=== PATIENT | female | born 1930 | race Caucasian/White ===

== ENCOUNTER 2016-06-29 20:16 | Inpatient (IN) | payer OTHER ==
[~2016-06-29] VITALS: Ht 160 cm; Wt 57.1 kg
[~2016-06-29 20:16] MED LIST: ASPEC81 PO; CIPR-255 PO; METO50TA16 PO
[2016-06-29] MEDS ORDERED: ACETAMINOPHEN 500 MG TAB PO STA (21:08)
[2016-06-29] MEDS ORDERED: SODIUM CHLORIDE 0.9% 1000ML 1,000 ML IV STA (21:08)
--- NOTE | 2016-06-29 21:41 | DIAGNOSTIC IMAGING REPORT ---
CHEST ONE VIEW PORTABLE CLINICAL HISTORY: fever COMPARISON STUDY: 12/09/2015 FINDINGS: The heart is at the upper limits of normal in size. There is no failure. There is no focal pulmonary consolidation. There are no pleural effusions. Underlying emphysema is suspected.[ IMPRESSION: Suspected pulmonary emphysema. No acute findings. Electronically signed by: Burak Dutton M.D. 06/29/2016 9:40 PM Dictated Date/Time: 06/29/2016 9:39 PM
[2016-06-29 21:49] LABS: URINE APPEARANCE CLEAR (CLEAR); URINE BILIRUBIN NEG (NEG); URINE COLOR YELLOW; URINE EPITHELIAL CELL AUTO >30 /lpf (0-5); URINE NITRITE NEG (NEG); URINE PH 5.5 (4.5-7.5); URINE SPECIFIC GRAVITY 1.016 (1.000-1.030); UROBILINOGEN NEG (NEG); ZZUR CULT IF INDIC CLEAN CATCH NO
[2016-06-29 21:51] LABS: MANUAL MICROSCOPIC REQUIRED? NO; REVIEW REQ? NO
[2016-06-29 22:09] LABS: PROTHROMBIN TIME (PATIENT) 10.8 SECONDS (9.0-12.0)
[2016-06-29 22:18] LABS: HEMATOCRIT 21.5 % (37-47); MEAN CELL VOLUME 64.2 fL (80-100); MEAN CORPUSCULAR HEMOGLOBIN 17.9 pg (25-34); MEAN CORPUSCULAR HGB CONC 27.9 g/dl (32-36); MEAN PLATELET VOLUME 8.7 fL (7.4-10.4); PLATELET COUNT 447 K/uL (130-400); RED BLOOD COUNT 3.35 M/uL (4.2-5.4); WHITE BLOOD COUNT 19.78 K/uL (4.8-10.8)
[2016-06-29 22:19] LABS: ALT/SGPT 11 U/L (12-78); BLOOD UREA NITROGEN 12 mg/dl (7-18); BUN/CREATININE RATIO 13.3 (10-20); CARBON DIOXIDE 27 mmol/L (21-32); CHLORIDE 103 mmol/L (98-107); CREATININE 0.91 mg/dl (0.60-1.20); GLUCOSE 112 mg/dl (70-99); MAGNESIUM 2.3 mg/dl (1.8-2.4); POTASSIUM 3.9 mmol/L (3.5-5.1); SODIUM 138 mmol/L (136-145)
[2016-06-29 22:24] LABS: ALKALINE PHOSPHATASE 162 U/L (45-117); AST/SGOT 12 U/L (15-37)
[2016-06-29] MEDS ORDERED: ASPITAB67 PO (22:28)
[2016-06-29 22:30] LABS: CALCIUM 8.8 mg/dl (8.5-10.1)
[2016-06-29 22:41] LABS: BASO % 0.1 %; BASO ABS # 0.02 K/uL (0-0.2); COMPLETE YES; HYPOCHROMIA PRESENT; IG% 0.5 %; LYMPH % 10.4 %; LYMPH ABS # 2.05 K/uL (1.2-3.4); MICROCYTOSIS PRESENT; MONO % 5.9 %; NEUT % 83.1 %
[2016-06-29] MEDS ORDERED: PIPERACILLIN/TAZOBACTAM 4.5 GM/100ML D5W IV STA (22:52)
[2016-06-29] MEDS ORDERED: PANTOprazole INJ 80 MG in DEXTROSE 5% 100ML IV STA (23:55)
[2016-06-29] MEDS ORDERED: PANTOprazole INJ 40 MG in DEXTROSE 5% 100ML IV STA (23:56)
[2016-06-30] VITALS (15 sets, daily range): BP systolic 122–166; BP diastolic 61–82; PULSE 75–98; TEMP 36.5–37.1; O2SAT 93–98; Ht 160 cm; Wt 57.1 kg
--- NOTE | 2016-06-30 00:22 | History and Physical ---
History & Physical Date & Time of Service: Jun 30, 2016 at 00:22 Chief Complaint: Weak,Don't Feel Like Eating Primary Care Physician: Sd Person M.D. History of Present Illness Source: patient Patient is a 86 Yr old female with PMH of Skin cancer, Osteoporosis, HTN, mitral valve prolapse and other problems presents with history of progressively worsening weakness since 2 weeks duration. She is a very poor historian. States getting tired easily with minimal exertion. Also has non productive cough since 1 week and loss of appetite. Seemed to have memory issues lately. Denies any history of chest pain, SOB, palpitations, dizziness, fever, abdominal pain, nausea, vomiting, diarrhea, urinary symptoms. Patient had last bowel movement yesterday. Denies any bleeding problems, melena or blood in stools. Her Hb is found to be 6.o and has positive FOBT. CT abd in Dec 2015 is concerning for colonic mass and diverticulosis is seen. Also has possible breast cancer. She states that she lost her sister two weeks ago. Past Medical/Surgical History Medical Problems: (1) H/O goiter Permanent Comment: treated with iodine in past Status: Chronic (2) Hypertension Status: Chronic (3) Mitral valve prolapse Status: Chronic (4) Osteoporosis Status: Chronic Surgical Problems: (1) S/P tonsillectomy Status: Chronic Family History Patient reports no known family medical history. Reviewed. Not relevant Social History Smoking Status: Never Smoker Alcohol Use: socially Drug Use: none Occupational Status: retired Allergies Coded Allergies: No Known Allergies (Unverified , 12/09/15) Home Medications Scheduled Exvosae-Hllxgqpztqwgf-Wyoajjwx (Vanquish), 1 TAB PO PRN Review of Systems See HPI for pertinent positives & negatives. A total of 10 systems reviewed and were otherwise negative. Physical Exam Vital Signs Date Time Temp Pulse Resp B/P Pulse Ox O2 Delivery O2 Flow Rate FiO2 06/29/16 23:42 37.3 06/29/16 23:35 100 18 94 06/29/16 23:30 117/55 06/29/16 23:05 106 25 94 06/29/16 23:01 121/59 06/29/16 22:35 107 20 96 06/29/16 22:30 142/72 06/29/16 22:05 114 24 93 06/29/16 22:05 123 06/29/16 22:00 136/ 06/29/16 21:46 119 22 94 06/29/16 21:30 158/70 06/29/16 21:23 95 Room Air 06/29/16 21:21 141/60 06/29/16 20:21 39.0 142 16 136/75 93 Room Air General Appearance: WD/WN, no apparent distress, + thin Head: normocephalic, atraumatic Eyes: normal inspection, PERRL, EOMI, + pertinent finding (+Pallor) ENT: normal ENT inspection, hearing grossly normal Neck: supple, no JVD, trachea midline Respiratory/Chest: chest non-tender, lungs clear, normal breath sounds, no respiratory distress, no accessory muscle use Cardiovascular: regular rate, rhythm, no edema, no murmur, + tachycardia Abdomen/GI: normal bowel sounds, non tender, soft Back: normal inspection Extremities/Musculoskelatal: normal inspection, no pedal edema Neurologic/Psych: 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, no motor/sensory deficits, alert, normal mood/affect, oriented x 3 Skin: normal color, warm/dry, + pallor Diagnostics Laboratory Results Results Past 24 Hours Test 06/29/16 21:20 06/29/16 21:50 06/29/16 22:17 06/30/16 00:20 Range/Units Urine Color YELLOW Urine Appearance CLEAR CLEAR Urine pH 5.5 4.5-7.5 Urine Specific [place] 1.016 1.000-1.030 Urine Protein TRACE NEG Urine Glucose (UA) NEG NEG Urine Ketones TRACE NEG Urine Occult Blood NEG NEG Urine Nitrite NEG NEG Urine Bilirubin NEG NEG Urine Urobilinogen NEG NEG Urine Leukocyte Esterase SMALL NEG Urine WBC (Auto) 1-5 0-5 /hpf Urine RBC (Auto) 0-4 0-4 /hpf Urine Hyaline Casts (Auto) 1-5 0-5 /lpf Urine Epithelial Cells (Auto) >30 0-5 /lpf Urine Bacteria (Auto) NEG NEG White Blood Count 19.78 4.8-10.8 K/uL Red Blood Count 3.35 4.2-5.4 M/uL Hemoglobin 6.0 12.0-16.0 g/dL Hematocrit 21.5 37-47 % Mean Corpuscular Volume 64.2 80-100 fL Mean Corpuscular Hemoglobin 17.9 25-34 pg Mean Corpuscular Hemoglobin Concent 27.9 32-36 g/dl Platelet Count 447 130-400 K/uL Mean Platelet Volume 8.7 7.4-10.4 fL Neutrophils (%) (Auto) 83.1 % Lymphocytes (%) (Auto) 10.4 % Monocytes (%) (Auto) 5.9 % Eosinophils (%) (Auto) 0.0 % Basophils (%) (Auto) 0.1 % Neutrophils # (Auto) 16.46 1.4-6.5 K/uL Lymphocytes # (Auto) 2.05 1.2-3.4 K/uL Monocytes # (Auto) 1.16 0.11-0.59 K/uL Eosinophils # (Auto) 0.00 0-0.5 K/uL Basophils # (Auto) 0.02 0-0.2 K/uL RDW Standard Deviation 40.3 36.4-46.3 fL RDW Coefficient of Variation 17.2 11.5-14.5 % Immature Granulocyte % (Auto) 0.5 % Immature Granulocyte # (Auto) 0.09 0.00-0.02 K/uL Hypochromasia PRESENT Microcytosis PRESENT Prothrombin Time 10.8 9.0-12.0 SECONDS Prothromb Time International Ratio 1.0 0.9-1.1 Sodium Level 138 136-145 mmol/L Potassium Level 3.9 3.5-5.1 mmol/L Chloride Level 103 98-107 mmol/L Carbon Dioxide Level 27 21-32 mmol/L Anion Gap 8.0 3-11 mmol/L Blood Urea Nitrogen 12 7-18 mg/dl Creatinine 0.91 0.60-1.20 mg/dl Estimated GFR () 66.7 Estimated GFR (Non- 57.5 BUN/Creatinine Ratio 13.3 10-20 Random Glucose 112 70-99 mg/dl Calcium Level 8.8 8.5-10.1 mg/dl Magnesium Level 2.3 1.8-2.4 mg/dl Total Bilirubin 0.4 0.2-1 mg/dl Direct Bilirubin 0.2 0-0.2 mg/dl Aspartate Amino Transf (AST/SGOT) 12 15-37 U/L Alanine Aminotransferase (ALT/SGPT) 11 12-78 U/L Alkaline Phosphatase 162 45-117 U/L Total Creatine Kinase 17 26-192 U/L Creatine Kinase MB < 0.5 0.5-3.6 ng/ml Creatine Kinase MB Ratio 0-3.0 Troponin I 0.015 0-0.045 ng/ml Total Protein 7.0 6.4-8.2 gm/dl Albumin 2.8 3.4-5.0 gm/dl Influenza Type A Antigen Neg for Influ A NEG Influenza Type B Antigen Neg for Influ B NEG Microbiology Results 06/29/16 Blood Culture, Received Pending 06/29/16 Blood Culture, Received Pending Diagnostic Radiology CXR: Suspected pulmonary emphysema. No acute findings. EKG EKG: sinus tachycardia Impression Assessment and Plan Acute GI bleeding Symptomatic Anemia Likley secondary to diverticular bleed/Colonic neoplasm Positive FOBT Hb: 6.0, baseline around 11.0 IV fluids, IV protonix Monitor H&H Transfuse PRBC as needed Currently no active bleeding GI consulted NPO for now Possible sepsis: Presented with fever, Tachycardia No obvious source of infection Follow blood/urine cultures Leukocytosis likely secondary to malignancy Start Zosyn empirically Check lactate levels Continue IV fluids Colonic Mass Abdominal CT shows a colonic mass in Dec 2015 Denies any abd pain Planned to get work up as outpatient during prior admission Breast Mass CT in Dec 2015 suggestive of breast malignancy Needs work up HTN: Mildly elevated Currently not on meds per patient on Lisinopril 20mg daily per records DVT px SCDs: secondary to GI bleeding Code Status: DNI
[2016-06-30] MEDS ORDERED: ONDANSETRON INJ 2 MG/ML 2 ML VIAL IV PRN (00:30)
[2016-06-30 01:08] LABS: HEMATOCRIT 18.2 % (37-47)
--- NOTE | 2016-06-30 01:52 | EMERGENCY ROOM VISIT NOTE ---
History Report prepared by Blanka: Deirdre Garber Under the Supervision of: Brian LuongO. First contact with patient: 21:06 Chief Complaint: WEAKNESS Stated Complaint: WEAK,DON'T FEEL LIKE EATING Nursing Triage Summary: Weakness and loss of appetite. Denies pain or illness. History of Present Illness The patient is a 86 year old female who presents to the Emergency Room with complaints of constant weakness beginning 3 days ago. The patient states that she has been feeling weak lately and is having a hard time getting around. She complains of difficulty walking, non-productive coughing beginning 2 weeks ago, loss of appetite, intermittent headaches beginning 2 weeks ago, and memory loss. She denies any runny nose, fever, abdominal pain, neck pain nausea, vomiting, diarrhea, urinary symptoms, open wounds or sores, recent surgeries, and diarrhea. The patient notes that her last bowel movement was yesterday. The patient's son reports that she had an x-ray done a few months ago that showed masses in her breast and abdomen. He reports that she also lost her sister two weeks ago. Source of History: patient, family Onset: 3 days ago Position: other (global) Quality: other (weakness) Timing: constant Modifying Factors (Worsening): other (walking) Associated Symptoms: + cough, + headache, No abdominal pain, No diarrhea, No fevers, No nausea, No neck pain, No urinary symptoms, No vomiting Note: She complains of difficulty walking, loss of appetite, and memory loss. She denies any runny nose, open wounds or sores, recent surgeries. Review of Systems See HPI for pertinent positives & negatives. A total of 10 systems reviewed and were otherwise negative. Past Medical & Surgical Medical Problems: (1) Anemia (2) GI (gastrointestinal bleed) (3) H/O goiter (4) Hypertension (5) Mitral valve prolapse (6) Osteoporosis (7) Sepsis (8) Weakness Surgical Problems: (1) S/P tonsillectomy Family History Patient reports no known family medical history. Social History Smoking Status: Never Smoker Housing Status: lives with family Occupation Status: retired Current/Historical Medications Scheduled Ywsvwtm-Nqeqfimbovurt-Judfemjg (Vanquish), 1 TAB PO PRN Allergies Coded Allergies: No Known Allergies (Unverified , 12/09/15) Physical Exam Vital Signs Date Time Temp Pulse Resp B/P Pulse Ox O2 Delivery O2 Flow Rate FiO2 06/30/16 00:40 101 22 96 06/30/16 00:30 122/61 06/30/16 00:10 98 19 96 06/30/16 00:01 105/62 06/29/16 23:42 37.3 06/29/16 23:35 100 18 94 06/29/16 23:30 117/55 06/29/16 23:05 106 25 94 06/29/16 23:01 121/59 06/29/16 22:35 107 20 96 06/29/16 22:30 142/72 06/29/16 22:05 114 24 93 06/29/16 22:05 123 06/29/16 22:00 136/ 06/29/16 21:46 119 22 94 06/29/16 21:30 158/70 06/29/16 21:23 95 Room Air 06/29/16 21:21 141/60 06/29/16 20:21 39.0 142 16 136/75 93 Room Air Physical Exam GENERAL: sitting up in bed, cachectic, alert, ill-appearing moderate distress EYE EXAM: normal conjunctiva OROPHARYNX: no exudate, no erythema, lips, buccal mucosa, and tongue normal and mucous membranes are dry NECK: supple, no nuchal rigidity, no adenopathy, non-tender LUNGS: Coarse, bilateral bases. Normal chest wall mechanics HEART: Tachycardic, no murmurs, S1 normal and S2 normal ABDOMEN: abdomen soft, non-tender, normo-active bowel sounds, no masses, no rebound or guarding. BACK: Back is symmetrical on inspection and there is no deformity, no midline tenderness, no CVA tenderness. SKIN: no rashes and no bruising UPPER EXTREMITIES: upper extremities are grossly normal. LOWER EXTREMITIES: No pitting edema. NEURO EXAM: Normal sensorium, cranial nerves II-XII grossly intact, normal speech, no gross weakness of arms, no gross weakness of legs. RECTAL: Heme positive. Medical Decision & Procedures ER Provider Diagnostic Interpretation: Radiology results as stated below per my review and the radiologist's interpretation: CHEST ONE VIEW PORTABLE FINDINGS: The heart is at the upper limits of normal in size. There is no failure. There is no focal pulmonary consolidation. There are no pleural effusions. Underlying emphysema is suspected.[ IMPRESSION: Suspected pulmonary emphysema. No acute findings. Electronically signed by: Burak Dutton M.D. 06/29/2016 9:40 PM Dictated Date/Time: 06/29/2016 9:39 PM Laboratory Results 06/29/16 21:50 Red Blood Count 3.35, Mean Corpuscular Volume 64.2, Mean Corpuscular Hemoglobin 17.9, Mean Corpuscular Hemoglobin Concent 27.9, Mean Platelet Volume 8.7, Neutrophils (%) (Auto) 83.1, Lymphocytes (%) (Auto) 10.4, Monocytes (%) (Auto) 5.9, Eosinophils (%) (Auto) 0.0, Basophils (%) (Auto) 0.1, Neutrophils # (Auto) 16.46, Lymphocytes # (Auto) 2.05, Monocytes # (Auto) 1.16, Eosinophils # (Auto) 0.00, Basophils # (Auto) 0.02 06/29/16 21:50 Test 06/29/16 21:20 06/29/16 21:50 06/29/16 22:17 Urine Color YELLOW Urine Appearance CLEAR (CLEAR) Urine pH 5.5 (4.5-7.5) Urine Specific [place] 1.016 (1.000-1.030) Urine Protein TRACE (NEG) Urine Glucose (UA) NEG (NEG) Urine Ketones TRACE (NEG) Urine Occult Blood NEG (NEG) Urine Nitrite NEG (NEG) Urine Bilirubin NEG (NEG) Urine Urobilinogen NEG (NEG) Urine Leukocyte Esterase SMALL (NEG) Urine WBC (Auto) 1-5 /hpf (0-5) Urine RBC (Auto) 0-4 /hpf (0-4) Urine Hyaline Casts (Auto) 1-5 /lpf (0-5) Urine Epithelial Cells (Auto) >30 /lpf (0-5) Urine Bacteria (Auto) NEG (NEG) White Blood Count 19.78 K/uL (4.8-10.8) Red Blood Count 3.35 M/uL (4.2-5.4) Hemoglobin 6.0 g/dL (12.0-16.0) Hematocrit 21.5 % (37-47) Mean Corpuscular Volume 64.2 fL (80-100) Mean Corpuscular Hemoglobin 17.9 pg (25-34) Mean Corpuscular Hemoglobin Concent 27.9 g/dl (32-36) Platelet Count 447 K/uL (130-400) Mean Platelet Volume 8.7 fL (7.4-10.4) Neutrophils (%) (Auto) 83.1 % Lymphocytes (%) (Auto) 10.4 % Monocytes (%) (Auto) 5.9 % Eosinophils (%) (Auto) 0.0 % Basophils (%) (Auto) 0.1 % Neutrophils # (Auto) 16.46 K/uL (1.4-6.5) Lymphocytes # (Auto) 2.05 K/uL (1.2-3.4) Monocytes # (Auto) 1.16 K/uL (0.11-0.59) Eosinophils # (Auto) 0.00 K/uL (0-0.5) Basophils # (Auto) 0.02 K/uL (0-0.2) RDW Standard Deviation 40.3 fL (36.4-46.3) RDW Coefficient of Variation 17.2 % (11.5-14.5) Immature Granulocyte % (Auto) 0.5 % Immature Granulocyte # (Auto) 0.09 K/uL (0.00-0.02) Hypochromasia PRESENT Microcytosis PRESENT Prothrombin Time 10.8 SECONDS (9.0-12.0) Prothromb Time International Ratio 1.0 (0.9-1.1) Anion Gap 8.0 mmol/L (3-11) Estimated GFR () 66.7 Estimated GFR (Non- 57.5 BUN/Creatinine Ratio 13.3 (10-20) Calcium Level 8.8 mg/dl (8.5-10.1) Magnesium Level 2.3 mg/dl (1.8-2.4) Total Bilirubin 0.4 mg/dl (0.2-1) Direct Bilirubin 0.2 mg/dl (0-0.2) Aspartate Amino Transf (AST/SGOT) 12 U/L (15-37) Alanine Aminotransferase (ALT/SGPT) 11 U/L (12-78) Alkaline Phosphatase 162 U/L (45-117) Total Creatine Kinase 17 U/L (26-192) Creatine Kinase MB < 0.5 ng/ml (0.5-3.6) Creatine Kinase MB Ratio (0-3.0) Troponin I 0.015 ng/ml (0-0.045) Total Protein 7.0 gm/dl (6.4-8.2) Albumin 2.8 gm/dl (3.4-5.0) Influenza Type A Antigen Neg for Influ A (NEG) Influenza Type B Antigen Neg for Influ B (NEG) Laboratory results per my review. Medications Administered Medications (Trade) Dose Ordered Sig/Dano Route Start Time Stop Time Status Last Admin Dose Admin Sodium Chloride (Nss 1000ml) 1,000 ml @ 999 mls/hr Q1H1M STAT IV 06/29/16 21:08 06/29/16 22:08 DC 06/29/16 22:04 999 MLS/HR Acetaminophen (Tylenol Tab) 1,000 mg NOW STAT PO 06/29/16 21:08 06/29/16 21:09 DC 06/29/16 22:04 1,000 MG Piperacillin Sod/ Tazobactam Sod 4.5 gm 4.5 gm NOW STAT IV 06/29/16 22:52 06/29/16 22:53 DC 06/29/16 23:25 4.5 GM Pantoprazole Sodium 80 mg/ Dextrose 120 ml @ 480 mls/hr ONE STAT IV 06/29/16 23:55 06/30/16 00:09 DC 06/30/16 00:23 480 MLS/HR Pantoprazole Sodium/Dextrose (Protonix Inj/D5 100ml) 100 ml @ 20 mls/hr ONE STAT IV 06/29/16 23:56 06/30/16 04:55 06/30/16 00:23 20 MLS/HR ECG Indication: weakness Rate (beats per minute): 124 Rhythm: sinus tachycardia Findings: left axis deviation, other (normal intervals) ED Course ED COURSE: Vital signs were reviewed and showed tachycardia and febrile The patients medical record was reviewed The above diagnostic studies were performed and reviewed. ED treatments and interventions as stated above. 6: The patient was evaluated in room C2B. A complete history and physical examination was performed. 8: Tylenol Tab 1000mg PO, Sodium Chloride 1000 ml @ 999 mls/hr IV. 2252: Zosyn IV 4.5gm IV. 2318: Pantoprazole Sodium 1ea IV. 2321: I reviewed the patient's case with Dr. Bruno of [facility]. Dr. Bruno will evaluate the patient for further management. 2341: Upon reevaluation, the patient is hemodynamically stable.I discussed my findings with the patient and she understands and agrees with the treatment plan. Based on the patients age, coexisting illnesses, exam and lab findings the decision to treat as an inpatient was made. The patient remained stable while under my care. The patient will be evaluated for further management. 2355: Pantoprazole Sodium 80mg/Dextrose 120ml @ 480mls/hr IV, Pantoprazole Sodium 40mg/Dextrose 100ml @ 20mls/hr IV. Medical Decision Differential diagnoses includes but is not limited to gastritis, peptic ulcer disease, GERD, gallbladder disease, pancreatitis, small bowel obstruction, acute coronary syndrome, pericarditis, ischemic bowel, irritable bowel disease, irritable bowel syndrome, appendicitis, diverticulitis, malignancy, hernia, urinary tract infection, torsion, perforation, trauma, infectious. Patient is an 86-year-old female who presents to ER febrile and tachycardic. On exam she is no complaints with exception of a little cough. Labs were obtained and show a leukocytosis of 20,000 along with anemia of 6. BMP along with LFTs, bilirubin and troponin were negative. INR was unremarkable. UA was negative. Chest x-ray was unremarkable. Influenza A and B were negative. Patient was given a bolus normal saline along with Tylenol and Zosyn. Uncertain of the true cause of her fevers. Rectal was heme positive. She was typed and crossed for 2 units. Family was updated bedside. She was given a Protonix bolus and drip. She will be admitted to internal medicine for further workup. Again she had no other complaints with the exception of mild cough. Her abdomen was benign. Discussed case with internal medicine patient was admitted for symptomatically anemia. Consults Time Called: [id number] Consulting Physician: Dr. Kiana Garcia Returned Call: [phone] I reviewed the patient's case with Dr. Bruno of [facility]. Dr. Bruno will evaluate the patient for further management. Impression Primary Impression: Symptomatic anemia Additional Impression: Fever Scribe Attestation The scribe's documentation has been prepared under my direction and personally reviewed by me in its entirety. I confirm that the note above accurately reflects all work, treatment, procedures, and medical decision making performed by me. Departure Information Dispostion Being Evaluated By Hospitalist Sd Prieto M.D. (PCP) Patient Instructions My [facility] Problem Qualifiers Additional Impression: Fever Fever type: unspecified Qualified Codes: R50.9 - Fever, unspecified
[2016-06-30] MEDS: ACETAMINOPHEN 325 MG TAB PO PRN ×3 (03:16→15:09)
[2016-06-30] MEDS: PANTOprazole INJ 40 MG in DEXTROSE 5% 100ML IV SCH ×4 (05:14→19:42)
[2016-06-30] MEDS: SODIUM CHLORIDE 0.9% 1000ML 1,000 ML IV SCH ×2 (05:15→10:33)
[2016-06-30 07:27] LABS: BUN/CREATININE RATIO 12.2 (10-20); CREATININE 0.9 mg/dl (0.60-1.20); POTASSIUM 3.7 mmol/L (3.5-5.1)
[2016-06-30 07:45] LABS: HEMATOCRIT 27.1 % (37-47); MEAN CELL VOLUME 70.4 fL (80-100); MEAN CORPUSCULAR HGB CONC 29.9 g/dl (32-36); MEAN PLATELET VOLUME 8.9 fL (7.4-10.4); PLATELET COUNT 326 K/uL (130-400); RED BLOOD COUNT 3.85 M/uL (4.2-5.4); WHITE BLOOD COUNT 11.25 K/uL (4.8-10.8)
[2016-06-30 07:52] LABS: ANISOCYTOSIS PRESENT; BASO % 0.1 %; BASO ABS # 0.01 K/uL (0-0.2); COMPLETE YES; EOS % 0.1 %; HYPERSEGMENTED POLYS 1+; HYPOCHROMIA PRESENT; IG% 0.2 %; LYMPH ABS # 1.57 K/uL (1.2-3.4); MICROCYTOSIS PRESENT; MONO % 7.5 %; NEUT % 78.1 %
[2016-06-30] MEDS: PIPERACILL/TAZOBAC IV 3.375 GM in DEXTROSE 5% 100ML 100 ML IV SCH ×3 (08:43→23:24)
[2016-06-30 11:29] LABS: ISTAT CREATININE 0.9 mg/dl (0.6-1.3); ISTAT HEMOGLOBIN 7.1 g/dl (12.0-16.0); ISTAT IONIZED CALCIUM 1.14 mmol/l (1.12-1.32)
--- NOTE | 2016-06-30 12:41 | GASTROINTESTINAL CONSULTATION ---
DATE OF CONSULTATION: 06/30/2016 REASON FOR EVALUATION: Severe microcytic anemia and heme positive stool. HISTORY OF PRESENT ILLNESS: The patient is an 86-year-old female who presented to the hospital with severe weakness and anorexia. The patient was seen in the Emergency Room and found to be profoundly anemic with hemoglobin of 6.1 and an MCV in the 60s. Her stool was Hemoccult positive. The patient reports no specific GI symptoms other than lack of appetite. She was hospitalized in December [address] scan that showed a tumor in the transverse colon as well as a 2 cm tumor in one of her breasts. At that time the patient decided not to pursue any treatment inpatient and was discharged for her to pursue treatment as an outpatient. Since being discharged, the patient has decided not to pursue any form of treatment for either of these lesions. She has had several members of her family recently and she has decided that she does not want to go through any form of treatment for either of these lesions, after thorough careful thought process. The patient has been transfused with 2 units and is currently getting her third unit of blood. Her main concern is when she can be discharged from the hospital. I did have a discussion with her about the prognosis with these lesions and she is aware of these consequences and has decided not to pursue any further evaluation. PAST MEDICAL HISTORY: Remarkable for goiter, hypertension, mitral valve prolapse, osteoporosis, tonsillectomy. MEDICATIONS: Aspirin, acetaminophen, caffeine combination. ALLERGIES: None. FAMILY HISTORY: She has several members of cancer and a sister 2 weeks ago of cancer, mother of heart disease. SOCIAL HISTORY: The patient is , lives with her , does not smoke. She is retired. REVIEW OF SYSTEMS: Remarkable only for fatigue. PHYSICAL EXAMINATION: GENERAL: The patient appears awake, alert, in no acute distress. VITAL SIGNS: Blood pressure is 117/55, pulse 100, she is afebrile. Room air oxygen saturation is 94%. SKIN: Warm. LUNGS: Clear. HEART: Showed mild tachycardia. ABDOMEN: Soft. There were no masses, tenderness, or hepatosplenomegaly. 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 The patient has decided not to pursue any treatment or workup of this lesion and is interested in only getting her blood transfusions completed, so she can leave the hospital. She is aware of the potential consequences of her actions and has declined any further evaluation.
[2016-06-30 13:51] LABS: HEMATOCRIT 29.3 % (37-47)
--- NOTE | 2016-06-30 17:46 | Progress Note ---
Internal Med Progress Note Date of Service: Jun 30, 2016. Provider Documentation: SUBJECTIVE: alert and awake and oriented denies any pain denies any bleeding afebrile n sb wants to go home doesn't want any test for her colonic mass OBJECTIVE: Vital Signs-as noted below Exam: General-alert and oriented. Not in distress ENT-hard of hearing Neck-no neck masses Lungs-cta b/l no wheezing or crackles Heart-s1 and s2 heard regular rate and rhythm no murmurs Abdomen-soft bowel sounds present non tender no distension Extremities-no edema no erythema Neuro-alert and awake moves extremities Lab data as noted below. ASSESSMENT & PLAN: Acute GI bleeding Symptomatic Anemia Likley secondary to diverticular bleed/Colonic neoplasm Positive FOBT Hb: 6.0 on presentation, baseline around 11.0 On IV fluids, IV Protonix s/p 3 units prbc transfused hb 8.8 started on clears patient refusing any interventions seen by GI and appreciate inputs Possible sepsis: Presented with fever, Tachycardia bacteremia with blood cx positive for gm negative bacilli on iv zosyn hemodynamics stable will monitor Colonic Mass Abdominal CT shows a colonic mass in Dec 2015 Denies any abd pain Planned to get work up as outpatient during prior admission seen by GI and refusing any workup family ok with patient decision Breast Mass CT in Dec 2015 suggestive of breast malignancy Needs work up refuses any workup HTN: Mildly elevated Currently not on meds per patient on Lisinopril 20mg daily per records will monitor DVT px SCDs: secondary to GI bleeding Code Status: DNI DISPOSITION monitor in tele to be determined pt/ot Vital Signs: Date Time Temp Pulse Resp B/P Pulse Ox O2 Delivery O2 Flow Rate FiO2 06/30/16 16:00 Room Air 06/30/16 15:29 36.5 76 18 158/80 93 Room Air 06/30/16 12:50 36.6 80 16 155/80 97 Room Air 06/30/16 12:50 36.6 75 16 166/75 98 06/30/16 12:00 Room Air 06/30/16 11:48 36.7 84 16 131/70 97 06/30/16 11:18 36.8 77 18 151/77 97 06/30/16 11:03 36.9 83 16 138/74 95 06/30/16 08:00 Room Air 06/30/16 07:28 36.9 81 18 136/65 94 Room Air 06/30/16 04:13 37.1 88 144/70 96 06/30/16 03:56 36.9 88 16 144/70 96 Room Air 06/30/16 03:18 37.0 98 132/68 94 06/30/16 02:46 37.0 90 127/71 95 06/30/16 01:45 37.1 95 145/69 97 06/30/16 01:45 37.1 95 18 145/69 97 Room Air 06/30/16 01:30 37.1 94 17 114/63 96 06/30/16 01:15 122/61 06/30/16 01:15 37.1 91 17 122/61 95 06/30/16 01:05 91 17 97 06/30/16 01:02 37.1 93 20 122/64 97 06/30/16 01:00 122/64 06/30/16 00:40 101 22 96 06/30/16 00:30 122/61 06/30/16 00:10 98 19 96 06/30/16 00:01 105/62 06/29/16 23:42 37.3 06/29/16 23:35 100 18 94 06/29/16 23:30 117/55 06/29/16 23:05 106 25 94 06/29/16 23:01 121/59 06/29/16 22:35 107 20 96 06/29/16 22:30 142/72 06/29/16 22:05 114 24 93 06/29/16 22:05 123 06/29/16 22:00 136/ 06/29/16 21:46 119 22 94 06/29/16 21:30 158/70 06/29/16 21:23 95 Room Air 06/29/16 21:21 141/60 06/29/16 20:21 39.0 142 16 136/75 93 Room Air Lab Results: Results Past 24 Hours Test 06/29/16 21:20 06/29/16 21:50 06/29/16 21:59 06/29/16 22:03 Range/Units Urine Color YELLOW Urine Appearance CLEAR CLEAR Urine pH 5.5 4.5-7.5 Urine Specific [place] 1.016 1.000-1.030 Urine Protein TRACE NEG Urine Glucose (UA) NEG NEG Urine Ketones TRACE NEG Urine Occult Blood NEG NEG Urine Nitrite NEG NEG Urine Bilirubin NEG NEG Urine Urobilinogen NEG NEG Urine Leukocyte Esterase SMALL NEG Urine WBC (Auto) 1-5 0-5 /hpf Urine RBC (Auto) 0-4 0-4 /hpf Urine Hyaline Casts (Auto) 1-5 0-5 /lpf Urine Epithelial Cells (Auto) >30 0-5 /lpf Urine Bacteria (Auto) NEG NEG White Blood Count 19.78 4.8-10.8 K/uL Red Blood Count 3.35 4.2-5.4 M/uL Hemoglobin 6.0 12.0-16.0 g/dL Hematocrit 21.5 37-47 % Mean Corpuscular Volume 64.2 80-100 fL Mean Corpuscular Hemoglobin 17.9 25-34 pg Mean Corpuscular Hemoglobin Concent 27.9 32-36 g/dl Platelet Count 447 130-400 K/uL Mean Platelet Volume 8.7 7.4-10.4 fL Neutrophils (%) (Auto) 83.1 % Lymphocytes (%) (Auto) 10.4 % Monocytes (%) (Auto) 5.9 % Eosinophils (%) (Auto) 0.0 % Basophils (%) (Auto) 0.1 % Neutrophils # (Auto) 16.46 1.4-6.5 K/uL Lymphocytes # (Auto) 2.05 1.2-3.4 K/uL Monocytes # (Auto) 1.16 0.11-0.59 K/uL Eosinophils # (Auto) 0.00 0-0.5 K/uL Basophils # (Auto) 0.02 0-0.2 K/uL RDW Standard Deviation 40.3 36.4-46.3 fL RDW Coefficient of Variation 17.2 11.5-14.5 % Immature Granulocyte % (Auto) 0.5 % Immature Granulocyte # (Auto) 0.09 0.00-0.02 K/uL Hypochromasia PRESENT Microcytosis PRESENT Prothrombin Time 10.8 9.0-12.0 SECONDS Prothromb Time International Ratio 1.0 0.9-1.1 Sodium Level 138 136-145 mmol/L Potassium Level 3.9 3.5-5.1 mmol/L Chloride Level 103 98-107 mmol/L Carbon Dioxide Level 27 21-32 mmol/L Anion Gap 8.0 18.0 16-25 mmol/L Blood Urea Nitrogen 12 7-18 mg/dl Creatinine 0.91 0.60-1.20 mg/dl Estimated GFR () 66.7 Estimated GFR (Non- 57.5 BUN/Creatinine Ratio 13.3 10-20 Random Glucose 112 70-99 mg/dl Calcium Level 8.8 8.5-10.1 mg/dl Magnesium Level 2.3 1.8-2.4 mg/dl Total Bilirubin 0.4 0.2-1 mg/dl Direct Bilirubin 0.2 0-0.2 mg/dl Aspartate Amino Transf (AST/SGOT) 12 15-37 U/L Alanine Aminotransferase (ALT/SGPT) 11 12-78 U/L Alkaline Phosphatase 162 45-117 U/L Total Creatine Kinase 17 26-192 U/L Creatine Kinase MB < 0.5 0.5-3.6 ng/ml Creatine Kinase MB Ratio 0-3.0 Troponin I 0.015 0-0.045 ng/ml Total Protein 7.0 6.4-8.2 gm/dl Albumin 2.8 3.4-5.0 gm/dl Bedside Lactic Acid Venous 0.94 0.90-1.70 mmol/L Bedside Hemoglobin 7.1 12.0-16.0 g/dl Bedside Hematocrit 21 37-47 % Bedside Sodium 137 135-144 mEq/L Bedside Potassium 3.9 3.3-5.0 mEq/L Bedside Chloride 100 101-112 mEq/L Bedside Total CO2 24 24-31 mEq/l Bedside Blood Urea Nitrogen 12 7-18 mg/dl Bedside Creatinine 0.9 0.6-1.3 mg/dl Bedside Glucose (other) 119 70-99 mg/dl Bedside Ionized Calcium ([place]) 1.14 1.12-1.32 mmol/l Test 06/29/16 22:17 06/30/16 00:52 06/30/16 06:41 06/30/16 13:28 Range/Units Influenza Type A Antigen Neg for Influ A NEG Influenza Type B Antigen Neg for Influ B NEG Hemoglobin 5.0 8.1 8.8 12.0-16.0 g/dL Hematocrit 18.2 27.1 29.3 37-47 % Lactic Acid Level 1.2 0.4-2.0 mmol/L White Blood Count 11.25 4.8-10.8 K/uL Red Blood Count 3.85 4.2-5.4 M/uL Mean Corpuscular Volume 70.4 80-100 fL Mean Corpuscular Hemoglobin 21.0 25-34 pg Mean Corpuscular Hemoglobin Concent 29.9 32-36 g/dl Platelet Count 326 130-400 K/uL Mean Platelet Volume 8.9 7.4-10.4 fL Neutrophils (%) (Auto) 78.1 % Lymphocytes (%) (Auto) 14.0 % Monocytes (%) (Auto) 7.5 % Eosinophils (%) (Auto) 0.1 % Basophils (%) (Auto) 0.1 % Neutrophils # (Auto) 8.80 1.4-6.5 K/uL Lymphocytes # (Auto) 1.57 1.2-3.4 K/uL Monocytes # (Auto) 0.84 0.11-0.59 K/uL Eosinophils # (Auto) 0.01 0-0.5 K/uL Basophils # (Auto) 0.01 0-0.2 K/uL RDW Standard Deviation 51.3 36.4-46.3 fL RDW Coefficient of Variation 20.1 11.5-14.5 % Immature Granulocyte % (Auto) 0.2 % Immature Granulocyte # (Auto) 0.02 0.00-0.02 K/uL Hypersegmented Polys 1+ Hypochromasia PRESENT Anisocytosis PRESENT Microcytosis PRESENT Sodium Level 139 136-145 mmol/L Potassium Level 3.7 3.5-5.1 mmol/L Chloride Level 106 98-107 mmol/L Carbon Dioxide Level 27 21-32 mmol/L Anion Gap 6.0 3-11 mmol/L Blood Urea Nitrogen 11 7-18 mg/dl Creatinine 0.90 0.60-1.20 mg/dl Est Creatinine Clear Calc Drug Dose 37.8 ml/min Estimated GFR () 67.6 Estimated GFR (Non- 58.3 BUN/Creatinine Ratio 12.2 10-20 Random Glucose 92 70-99 mg/dl Calcium Level 8.0 8.5-10.1 mg/dl Microbiology Results 06/29/16 Blood Culture, Received Pending 06/29/16 Blood Culture - Preliminary, Resulted Gram Negative Bacilli
[2016-06-30 19:05] LABS: HEMATOCRIT 30.4 % (37-47)
[2016-07-01] MEDS: PANTOprazole INJ 40 MG in DEXTROSE 5% 100ML IV SCH ×3 (00:39→10:21)
[2016-07-01] MEDS: SODIUM CHLORIDE 0.9% 1000ML 1,000 ML IV SCH (02:58)
[2016-07-01 04:11] VITALS: BP 141/75; PULSE 89; TEMP 37.1; O2SAT 96
[2016-07-01 07:46] VITALS: BP 146/74; PULSE 69; TEMP 36.9; O2SAT 96
[2016-07-01 08:00] VITALS: O2SAT 96
[2016-07-01] MEDS: PIPERACILL/TAZOBAC IV 3.375 GM in DEXTROSE 5% 100ML 100 ML IV SCH (08:53)
[2016-07-01 09:38] LABS: BASO % 0.1 %; BASO ABS # 0.01 K/uL (0-0.2); EOS % 1.3 %; HEMATOCRIT 33.5 % (37-47); IG% 0.3 %; LYMPH % 13.7 %; LYMPH ABS # 1.88 K/uL (1.2-3.4); MEAN CORPUSCULAR HEMOGLOBIN 22.4 pg (25-34); MEAN PLATELET VOLUME 9.2 fL (7.4-10.4); MONO % 5.8 %; NEUT % 78.8 %; PLATELET COUNT 323 K/uL (130-400); RED BLOOD COUNT 4.65 M/uL (4.2-5.4); WHITE BLOOD COUNT 13.71 K/uL (4.8-10.8)
[2016-07-01 10:07] LABS: BUN/CREATININE RATIO 8.5 (10-20); CALCIUM 8.1 mg/dl (8.5-10.1); CREATININE 0.91 mg/dl (0.60-1.20); POTASSIUM 3.5 mmol/L (3.5-5.1)
[2016-07-01 10:57] LABS: ANISOCYTOSIS PRESENT; COMPLETE YES; HYPOCHROMIA PRESENT; MICROCYTOSIS PRESENT; OVALOCYTES 1+; SMUDGE CELLS PRESENT
[2016-07-01 10:58] LABS: ECHINOCYTES 1+
[2016-07-01 11:40] VITALS: BP 157/84; PULSE 66; TEMP 36.9; O2SAT 96
[2016-07-01 12:00] VITALS: O2SAT 95
[2016-07-01] MEDS ORDERED: CEFU1TAB36 PO (13:45)
[2016-07-01] MEDS ORDERED: LCTX PO (13:45)
--- NOTE | 2016-07-01 13:50 | Discharge Instructions ---
Discharge Instructions Date of Service Jul 01, 2016. Admission Reason for Admission: Anemia, Gi Bleed, Weakness Discharge Discharge Diagnosis / Problem: anemia, gi bleed, bacteremia Discharge Goals Goal(s): Decrease discomfort, Improve function Activity Recommendations Activity Limitations: resume your previous activity . Instructions / Follow-Up Instructions / Follow-Up FOLLOWUP WITH FAMILY DOCTOR IN ONE WEEK. PATIENT WILL BE CALLED WITH APPOINTMENT. LAB :WEEKLY CBC AND FOLLOW RESULTS WITH FAMILY DOCTOR Current Hospital Diet Patient's current hospital diet: Low Fiber Diet Discharge Diet Recommended Diet: Regular Diet Pending Studies Studies pending at discharge: no Medical Emergencies . Who to Call and When: Medical Emergencies: If at any time you feel your situation is an emergency, please call 911 immediately. . Non-Emergent Contact Non-Emergency issues call your: Primary Care Provider . . "Provider Documentation" section prepared by Dawood Cohen. . VTE Core Measure Inpt VTE Proph given/why not?: SCD's
[2016-07-01 13:58] VITALS: BP 157/84; PULSE 66; TEMP 36.9; O2SAT 95
--- NOTE | 2016-07-01 18:41 | Progress Note ---
Internal Med Progress Note Date of Service: Jul 01, 2016. Provider Documentation: SUBJECTIVE: alert and awake and oriented denies any pain wants to go home adamantly told nursing staff if not discharged will leave the hospital OBJECTIVE: Vital Signs-as noted below Exam: General-alert and oriented. Not in distress ENT-hard of hearing Neck-no neck masses Lungs-cta b/l no wheezing or crackles Heart-s1 and s2 heard regular rate and rhythm no murmurs Abdomen-soft bowel sounds present non tender no distension Extremities-no edema no erythema Neuro-alert and awake moves extremities Lab data as noted below. ASSESSMENT & PLAN: Acute GI bleeding Symptomatic Anemia Likley secondary to diverticular bleed/Colonic neoplasm Positive FOBT Hb: 6.0 on presentation, baseline around 11.0 On IV fluids, IV Protonix s/p 3 units prbc transfused hb 10.4 today started on clears patient refusing any interventions seen by GI and appreciate inputs patient adamantly wants to be discharged f/u with pcp Possible sepsis: Presented with fever, Tachycardia bacteremia with one blood cx positive for gm negative bacilli on iv zosyn hemodynamics stable adamantly ant to leave the hospital. doesn't want to wait until final cx hx of weiss sensitive e.coli bacteremia d/marlon on cefuroxime Colonic Mass Abdominal CT shows a colonic mass in Dec 2015 Denies any abd pain Planned to get work up as outpatient during prior admission seen by GI and refusing any workup family ok with patient decision Breast Mass CT in Dec 2015 suggestive of breast malignancy Needs work up refuses any workup HTN: Mildly elevated Currently not on meds per patient on Lisinopril 20mg daily per records f/u with pcp will monitor Discharged home Vital Signs: Date Time Temp Pulse Resp B/P Pulse Ox O2 Delivery O2 Flow Rate FiO2 07/01/16 13:58 36.9 66 16 95 Room Air 07/01/16 12:00 95 Room Air 07/01/16 11:40 36.9 66 16 157/84 96 Room Air 07/01/16 08:00 96 Room Air 07/01/16 07:46 36.9 69 20 146/74 96 Room Air 07/01/16 04:11 37.1 89 18 141/75 96 Room Air 07/01/16 04:00 Room Air 06/30/16 23:59 Room Air 06/30/16 23:31 36.7 78 16 148/67 95 Room Air 06/30/16 20:00 Room Air 06/30/16 19:39 36.7 75 18 163/82 95 Room Air Lab Results: Results Past 24 Hours Test 06/30/16 18:53 07/01/16 09:27 Range/Units Hemoglobin 9.2 10.4 12.0-16.0 g/dL Hematocrit 30.4 33.5 37-47 % White Blood Count 13.71 4.8-10.8 K/uL Red Blood Count 4.65 4.2-5.4 M/uL Mean Corpuscular Volume 72.0 80-100 fL Mean Corpuscular Hemoglobin 22.4 25-34 pg Mean Corpuscular Hemoglobin Concent 31.0 32-36 g/dl Platelet Count 323 130-400 K/uL Mean Platelet Volume 9.2 7.4-10.4 fL Neutrophils (%) (Auto) 78.8 % Lymphocytes (%) (Auto) 13.7 % Monocytes (%) (Auto) 5.8 % Eosinophils (%) (Auto) 1.3 % Basophils (%) (Auto) 0.1 % Neutrophils # (Auto) 10.80 1.4-6.5 K/uL Lymphocytes # (Auto) 1.88 1.2-3.4 K/uL Monocytes # (Auto) 0.80 0.11-0.59 K/uL Eosinophils # (Auto) 0.18 0-0.5 K/uL Basophils # (Auto) 0.01 0-0.2 K/uL RDW Standard Deviation 56.8 36.4-46.3 fL RDW Coefficient of Variation 21.9 11.5-14.5 % Immature Granulocyte % (Auto) 0.3 % Immature Granulocyte # (Auto) 0.04 0.00-0.02 K/uL Smudge Cells PRESENT Hypochromasia PRESENT Anisocytosis PRESENT Microcytosis PRESENT Ovalocytes 1+ Echinocytes 1+ Sodium Level 140 136-145 mmol/L Potassium Level 3.5 3.5-5.1 mmol/L Chloride Level 105 98-107 mmol/L Carbon Dioxide Level 28 21-32 mmol/L Anion Gap 7.0 3-11 mmol/L Blood Urea Nitrogen 8 7-18 mg/dl Creatinine 0.91 0.60-1.20 mg/dl Est Creatinine Clear Calc Drug Dose 37.4 ml/min Estimated GFR () 66.7 Estimated GFR (Non- 57.5 BUN/Creatinine Ratio 8.5 10-20 Random Glucose 107 70-99 mg/dl Calcium Level 8.1 8.5-10.1 mg/dl Microbiology Results 06/30/16 Urine Culture - Preliminary, Resulted NO GROWTH - LESS THAN 1,000 COLONIES/...
--- NOTE | 2016-07-01 19:14 | Discharge Summary ---
Discharge Summary Date of Service Jul 01, 2016. Discharge Summary Admission Date: Jun 30, 2016 at 00:40 Discharge Date: Jul 01, 2016 Discharge Disposition: Home with services Principal Diagnosis: ANEMIA BACTEREMIA Secondary Diagnoses/Problems: (1) H/O goiter Permanent Comment: treated with iodine in past Status: Chronic (2) Hypertension Status: Chronic (3) Mitral valve prolapse Status: Chronic (4) Osteoporosis Status: Chronic Consultations: GI Medication Reconciliation New Medications: Cefuroxime Axetil (Cefuroxime Axetil) 500 Mg Tab 1 TAB PO BID for 10 Days, #20 TAB Lactobacillus Acidophilus (Lactinex) Tab 2 TAB PO BID for 12 Days, TAB Continued Medications: Jsfrwap-Nxhukynpzisec-Iqpvvlyr (Vanquish) 1 Tab Tab 1 TAB PO PRN for Headache or Pain Admission Information HPI (per Admitting provider): Patient is a 86 Yr old female with PMH of Skin cancer, Osteoporosis, HTN, mitral valve prolapse and other problems presents with history of progressively worsening weakness since 2 weeks duration. She is a very poor historian. States getting tired easily with minimal exertion. Also has non productive cough since 1 week and loss of appetite. Seemed to have memory issues lately. Denies any history of chest pain, SOB, palpitations, dizziness, fever, abdominal pain, nausea, vomiting, diarrhea, urinary symptoms. Patient had last bowel movement yesterday. Denies any bleeding problems, melena or blood in stools. Her Hb is found to be 6.o and has positive FOBT. CT abd in Dec 2015 is concerning for colonic mass and diverticulosis is seen. Also has possible breast cancer. She states that she lost her sister two weeks ago. Physical Exam (per Admitting): General Appearance: WD/WN, no apparent distress, + thin Head: normocephalic, atraumatic Eyes: normal inspection, PERRL, EOMI, + pertinent finding (+Pallor) ENT: normal ENT inspection, hearing grossly normal Neck: supple, no JVD, trachea midline Respiratory/Chest: chest non-tender, lungs clear, normal breath sounds, no respiratory distress, no accessory muscle use Cardiovascular: regular rate, rhythm, no edema, no murmur, + tachycardia Abdomen/GI: normal bowel sounds, non tender, soft Back: normal inspection Extremities/Musculoskelatal: normal inspection, no pedal edema 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, no motor/sensory deficits, alert , normal mood/affect, oriented x 3 Skin: normal color, warm/dry, + pallor Hospital Course Acute GI bleeding Symptomatic Anemia Georges secondary to diverticular bleed/Colonic neoplasm Positive FOBT Hb: 6.0 on presentation, baseline around 11.0 On IV fluids, IV Protonix s/p 3 units prbc transfused hb 10.4 today started on clears patient refusing any interventions seen by GI and appreciate inputs patient adamantly wants to be discharged f/u with pcp Possible sepsis: Presented with fever, Tachycardia bacteremia with one blood cx positive for gm negative bacilli on iv zosyn hemodynamics stable adamantly ant to leave the hospital. doesn't want to wait until final cx hx of weiss sensitive e.coli bacteremia d/marlon on cefuroxime Colonic Mass Abdominal CT shows a colonic mass in Dec 2015 Denies any abd pain Planned to get work up as outpatient during prior admission seen by GI and refusing any workup family ok with patient decision Breast Mass CT in Dec 2015 suggestive of breast malignancy Needs work up refuses any workup HTN: Mildly elevated Currently not on meds per patient on Lisinopril 20mg daily per records f/u with pcp will monitor Discharged home Total time spent on discharge = 40MINUTES This includes examination of the patient, discharge planning, medication reconciliation, and communication with other providers. Discharge Instructions Discharge Instructions Date of Service Jul 01, 2016. Admission Reason for Admission: Anemia, Gi Bleed, Weakness Discharge Discharge Diagnosis / Problem: anemia, gi bleed, bacteremia Discharge Goals Goal(s): Decrease discomfort, Improve function Activity Recommendations Activity Limitations: resume your previous activity . Instructions / Follow-Up Instructions / Follow-Up FOLLOWUP WITH FAMILY DOCTOR IN ONE WEEK. PATIENT WILL BE CALLED WITH APPOINTMENT. LAB :WEEKLY CBC AND FOLLOW RESULTS WITH FAMILY DOCTOR Current Hospital Diet Patient's current hospital diet: Low Fiber Diet Discharge Diet Recommended Diet: Regular Diet Pending Studies Studies pending at discharge: no Medical Emergencies . Who to Call and When: Medical Emergencies: If at any time you feel your situation is an emergency, please call 911 immediately. . Non-Emergent Contact Non-Emergency issues call your: Primary Care Provider . . "Provider Documentation" section prepared by Dawood Cohen. . VTE Core Measure Inpt VTE Proph given/why not?: SCD's
[2016-07-01] MEDS ORDERED: PANTOprazole INJ 40 MG in SYRINGE 0 ML IV SCH (21:00)
[2016-08-15] MEDS ORDERED: OMEG10007 PO (07:48)
[2017-01-02] MEDS ORDERED: CEFD300C2 PO (16:00)
[2017-01-02] MEDS ORDERED: LSN20 PO (16:00)
[2017-01-02] MEDS ORDERED: FRRS300 PO (16:00)
[2017-01-02] MEDS ORDERED: METO-551 PO (16:00)
[2017-01-09] MEDS ORDERED: ATV5 SL (11:30)
[2017-01-09] MEDS ORDERED: LVS125 SL (11:30)
[2017-01-09] MEDS ORDERED: RXNS10 SL (11:30)
== END 2016-07-01 15:30 | disposition home or self-care (01) | DRG 872 ==
LOC: ENRESERVDT → ENRESERVTM → C.EDB 20:17 → C.2T 06-30 00:40
PROVIDERS: ADMIT Internal Medicine; ATTEND Internal Medicine
DX: R78.81 Bacteremia (principal); K92.2 Gastrointestinal hemorrhage, unspecified; D50.9 Iron deficiency anemia, unspecified; Z66 Do not resuscitate; A49.8 Other bacterial infections of unspecified site; I10 Essential (primary) hypertension; M81.0 Age-related osteoporosis without current pathological fracture; I34.1 Nonrheumatic mitral (valve) prolapse; R78.89 Finding of other specified substances, not normally found in blood; N63 Unspecified lump in breast; Z85.828 Personal history of other malignant neoplasm of skin

== ENCOUNTER 2016-07-26 08:10 | Inpatient (IN) | payer OTHER ==
[~2016-07-26] VITALS: Ht 170.2 cm; Wt 56.6 kg
[2016-07-26] VITALS (8 sets, daily range): BP systolic 94–122; BP diastolic 56–72; PULSE 88–101; TEMP 36.8–39; O2SAT 93–96; Ht 170.2 cm; Wt 56.6 kg
[~2016-07-26 08:10] MED LIST changes: -ASPEC81 PO; +ASPITAB67 PO; -CIPR-255 PO; -METO50TA16 PO
[2016-07-26] MEDS ORDERED: ACETAMINOPHEN 500 MG TAB PO STA (08:52)
[2016-07-26] MEDS ORDERED: METO50TA16 PO (09:05)
--- NOTE | 2016-07-26 09:14 | EMERGENCY ROOM VISIT NOTE ---
History Report prepared by Blanka: Karie Cinseros Under the Supervision of: Dr. Frankie Ortega M.D. First contact with patient: 08:44 Chief Complaint: COUGH Stated Complaint: ILLNESS Nursing Triage Summary: Recent cough, chills and generalized discomfort all last night. Mild dyspnea on exertion. Mild nausea. No dyspnea at rest. Has not taken any PRN meds. History of Present Illness The patient is a 86 year old female who presents to the Emergency Room with complaints of worsening flu-like symptoms since yesterday. The patient reports chills, cough, nausea, and generalized weakness that began yesterday. Her symptoms continued throughout the night and worsened this morning. She has not checked her temperature and is unsure if she has had fevers. She also notes some dyspnea on exertion. The patient denies vomiting, diarrhea, urinary symptoms, and sore throat. She has been drinking water. She did not take any medications today. The patient denies any blood thinners. Source of History: patient Onset: yesterday Position: other (global) Quality: other (flu-like) Timing: worsening Modifying Factors (Worsening): exertion Associated Symptoms: + SOB, + chills, + cough, + nausea, + weakness, No diarrhea, No sorethroat, No urinary symptoms, No vomiting Review of Systems All systems have been listed, reviewed, and are negative other than those previously mentioned. Please see Additional Medical History Sheet. Past Medical & Surgical Medical Problems: (1) Anemia (2) Breast mass (3) Colonic mass (4) Dyslipidemia (5) GI (gastrointestinal bleed) (6) H/O goiter (7) History of GI bleed (8) Hypertension (9) Mitral valve prolapse (10) Osteoporosis (11) Pneumonia (12) Sepsis (13) SIRS (systemic inflammatory response syndrome) (14) Weakness Surgical Problems: (1) S/P tonsillectomy Family History Patient reports no known family medical history. Social History Smoking Status: Former Smoker Drug Use: none Housing Status: lives with family Occupation Status: retired Current/Historical Medications Scheduled Cholecalciferol (Vitamin D3), 1 TAB PO DAILY Ferrous Sulfate (Ferrous Sulfate), 325 MG PO BID Lisinopril (Zestril), 20 MG PO DAILY Scheduled PRN Cbceumi-Nzlszhfxdango-Osfpxxwk (Vanquish), 1 TAB PO UD PRN for Headache Allergies Coded Allergies: No Known Allergies (Unverified , 07/26/16) Physical Exam Vital Signs Date Time Temp Pulse Resp B/P Pulse Ox O2 Delivery O2 Flow Rate FiO2 07/26/16 10:50 37.3 116 20 103/42 93 Room Air 07/26/16 10:50 37.3 116 20 103/42 93 Room Air 07/26/16 10:10 122 22 95/52 93 Room Air 07/26/16 08:22 140 07/26/16 08:17 95 Room Air 07/26/16 08:17 39.0 Physical Exam GENERAL: Patient awake, alert, oriented x 3. Patient follows commands. Patient does not appear toxic. Patient is adequately hydrated and well- nourished. SKIN: Patient is warm to touch. No erythema, pallor, cyanosis or rash HEENT: Normal head, pupils equal, reactive to light and accommodation. Ears normal. Oral cavity and posterior pharynx appear normal. Neck: Without adenopathy, no neck vein distention. LUNGS: Clear to auscultation. No wheezes, no rales, no rhonchi. HEART: Regular rapid rate. No murmurs. No gallops. No rubs ABDOMEN: No masses, no rebound, no hepatomegaly or splenomegaly. EXTREMITIES: No signs of trauma. No pedal or pretibial edema. No calf or thigh tenderness. NEUROLOGIC: Cranial nerves II-XII within normal limits. No gross motor sensory function deficits. Medical Decision & Procedures ER Provider Diagnostic Interpretation: Radiology results as stated below per my review and radiologist interpretation: CHEST 2 VIEWS ROUTINE CLINICAL HISTORY: cough fever COMPARISON STUDY: 06/29/2016 FINDINGS: Mild/moderate emphysematous change. Potential early parenchymal infiltrate left base. No evidence for cardiac enlargement. Upper lobe fibrous change with chronic apical pleural thickening. IMPRESSION: Emphysematous change. Potential small parenchymal infiltrate left base. Electronically signed by: Lexx Magallanes M.D. 07/26/2016 10:07 AM Dictated Date/Time: 07/26/2016 10:07 AM Laboratory Results 07/26/16 08:00 Red Blood Count 4.70, Mean Corpuscular Volume 72.8, Mean Corpuscular Hemoglobin 21.5, Mean Corpuscular Hemoglobin Concent 29.5, Mean Platelet Volume 10.1, Neutrophils (%) (Auto) 85.0, Lymphocytes (%) (Auto) 13.1, Monocytes (%) (Auto) 0.6, Eosinophils (%) (Auto) 0.4, Basophils (%) (Auto) 0.1, Neutrophils # (Auto) 14.49, Lymphocytes # (Auto) 2.24, Monocytes # (Auto) 0.11, Eosinophils # (Auto) 0.06, Basophils # (Auto) 0.02 07/26/16 08:00 Test 07/26/16 08:00 07/26/16 09:10 07/26/16 09:45 07/26/16 10:13 White Blood Count 17.05 K/uL (4.8-10.8) Red Blood Count 4.70 M/uL (4.2-5.4) Hemoglobin 10.1 g/dL (12.0-16.0) Hematocrit 34.2 % (37-47) Mean Corpuscular Volume 72.8 fL (80-100) Mean Corpuscular Hemoglobin 21.5 pg (25-34) Mean Corpuscular Hemoglobin Concent 29.5 g/dl (32-36) Platelet Count 396 K/uL (130-400) Mean Platelet Volume 10.1 fL (7.4-10.4) Neutrophils (%) (Auto) 85.0 % Lymphocytes (%) (Auto) 13.1 % Monocytes (%) (Auto) 0.6 % Eosinophils (%) (Auto) 0.4 % Basophils (%) (Auto) 0.1 % Neutrophils # (Auto) 14.49 K/uL (1.4-6.5) Lymphocytes # (Auto) 2.24 K/uL (1.2-3.4) Monocytes # (Auto) 0.11 K/uL (0.11-0.59) Eosinophils # (Auto) 0.06 K/uL (0-0.5) Basophils # (Auto) 0.02 K/uL (0-0.2) RDW Standard Deviation 61.9 fL (36.4-46.3) RDW Coefficient of Variation 23.1 % (11.5-14.5) Immature Granulocyte % (Auto) 0.8 % Immature Granulocyte # (Auto) 0.13 K/uL (0.00-0.02) Hypochromasia PRESENT Poikilocytosis PRESENT Anisocytosis PRESENT Echinocytes 1+ Anion Gap 12.0 mmol/L (3-11) Est Creatinine Clear Calc Drug Dose 24.6 ml/min Estimated GFR () 47.7 Estimated GFR (Non- 41.2 BUN/Creatinine Ratio 9.9 (10-20) Calcium Level 8.9 mg/dl (8.5-10.1) Total Bilirubin 0.5 mg/dl (0.2-1) Aspartate Amino Transf (AST/SGOT) 15 U/L (15-37) Alanine Aminotransferase (ALT/SGPT) 11 U/L (12-78) Alkaline Phosphatase 188 U/L (45-117) Total Protein 7.6 gm/dl (6.4-8.2) Albumin 2.8 gm/dl (3.4-5.0) Globulin 4.8 gm/dl (2.5-4.0) Albumin/Globulin Ratio 0.6 (0.9-2) Urine Color YELLOW Urine Appearance CLEAR (CLEAR) Urine pH 5.0 (4.5-7.5) Urine Specific [place] 1.012 (1.000-1.030) Urine Protein NEG (NEG) Urine Glucose (UA) NEG (NEG) Urine Ketones NEG (NEG) Urine Occult Blood NEG (NEG) Urine Nitrite NEG (NEG) Urine Bilirubin NEG (NEG) Urine Urobilinogen NEG (NEG) Urine Leukocyte Esterase NEG (NEG) Lactic Acid Level 1.5 mmol/L (0.4-2.0) Influenza Type A (RT-PCR) Neg for Influ A (NEG) Influenza Type B (RT-PCR) Neg for Influ B (NEG) Laboratory results as stated above per my review. Medications Administered Medications (Trade) Dose Ordered Sig/Dano Route Start Time Stop Time Status Last Admin Dose Admin Acetaminophen (Tylenol Tab) 650 mg STK-MED ONCE .ROUTE 07/26/16 09:26 07/26/16 09:27 DC 07/26/16 09:28 650 MG Ceftriaxone Sodium (Rocephin Inj) 1 gm NOW STAT IV 07/26/16 10:37 07/26/16 10:39 DC 07/26/16 10:52 1 GM Azithromycin (Zithromax Tab) 500 mg NOW STAT PO 07/26/16 10:37 07/26/16 10:39 DC 07/26/16 10:52 500 MG ECG Indication: nausea Rate (beats per minute): 138 Rhythm: sinus tachycardia Findings: no acute ischemic change, no ectopy Comparison ECG Date: 06/29/16 Change: no significant change ED Course 0844: Past medical records reviewed. The patient was evaluated in room B2. A complete history and physical examination was performed. 0852: Tylenol 650 mg PO 1037: Zithromax 500 mg PO, Rocephin 1 gm IV 1041: I reassessed the patient at this time. She is feeling better and resting comfortably. I discussed the results and treatment plan with the patient. I answered all pertaining questions that she had. She expressed understanding and verbalized agreement. 1055: I spoke with JAKE Workman. We discussed the patients results and treatment plan. The patient will be evaluated by the [facility] for further management. Medical Decision Differential diagnoses includes pneumonia, UTI, sepsis, viral infection including influenza. The patient is here with fever and feeling poorly. Multiple labs, EKG and imaging were obtained. Please see above. The patient's white count is elevated. Lactic acid is not significantly elevated. The patient does have elevation of her troponin. Chest x-ray is consistent with a small pneumonia. Following blood cultures the patient was given IV antibiotics. I discussed care with the patient and the hospitalist. The patient will require further evaluation in the hospital. Consults Time Called: 1050 Consulting Physician: JAKE Workman Returned Call: 1055 I spoke with JAKE Workman. We discussed the patients results and treatment plan. The patient will be evaluated by the [facility] for further management. Impression Primary Impression: Pneumonia Additional Impression: Elevated troponin Scribe Attestation The scribe's documentation has been prepared under my direction and personally reviewed by me in its entirety. I confirm that the note above accurately reflects all work, treatment, procedures, and medical decision making performed by me. Departure Information Dispostion Being Evaluated By Hospitalist Referrals Sd Person M.D. (PCP) Patient Instructions [facility] Problem Qualifiers Primary Impression: Pneumonia Pneumonia type: due to unspecified organism Laterality: left Lung location : lower lobe of lung Qualified Codes: J18.1 - Lobar pneumonia, unspecified organism
[2016-07-26 09:19] LABS: BUN/CREATININE RATIO 9.9 (10-20); CREATININE 1.2 mg/dl (0.60-1.20); POTASSIUM 3.8 mmol/L (3.5-5.1)
[2016-07-26 09:21] LABS: CALCIUM 8.9 mg/dl (8.5-10.1)
[2016-07-26] MEDS ORDERED: ACETAMINOPHEN 325 MG TAB ONE (09:26)
[2016-07-26 09:28] LABS: ALB/GLOB RATIO 0.6 (0.9-2)
[2016-07-26 09:31] LABS: URINE APPEARANCE CLEAR (CLEAR); URINE BILIRUBIN NEG (NEG); URINE COLOR YELLOW; URINE NITRITE NEG (NEG); URINE SPECIFIC GRAVITY 1.012 (1.000-1.030); UROBILINOGEN NEG (NEG); ZZURINE CULT IF INDIC CATH NO
[2016-07-26 09:37] LABS: MANUAL MICROSCOPIC REQUIRED? NO; REVIEW REQ? NO
[2016-07-26 09:38] LABS: BASO % 0.1 %; BASO ABS # 0.02 K/uL (0-0.2); EOS % 0.4 %; HEMATOCRIT 34.2 % (37-47); IG% 0.8 %; LYMPH % 13.1 %; LYMPH ABS # 2.24 K/uL (1.2-3.4); MEAN CELL VOLUME 72.8 fL (80-100); MEAN CORPUSCULAR HEMOGLOBIN 21.5 pg (25-34); MEAN CORPUSCULAR HGB CONC 29.5 g/dl (32-36); MEAN PLATELET VOLUME 10.1 fL (7.4-10.4); MONO % 0.6 %; PLATELET COUNT 396 K/uL (130-400); WHITE BLOOD COUNT 17.05 K/uL (4.8-10.8)
--- NOTE | 2016-07-26 10:09 | DIAGNOSTIC IMAGING REPORT ---
CHEST 2 VIEWS ROUTINE CLINICAL HISTORY: cough fever COMPARISON STUDY: 06/29/2016 FINDINGS: Mild/moderate emphysematous change. Potential early parenchymal infiltrate left base. No evidence for cardiac enlargement. Upper lobe fibrous change with chronic apical pleural thickening. IMPRESSION: Emphysematous change. Potential small parenchymal infiltrate left base. Electronically signed by: Lexx Magallanes M.D. 07/26/2016 10:07 AM Dictated Date/Time: 07/26/2016 10:07 AM
[2016-07-26 10:13] LABS: ANISOCYTOSIS PRESENT; COMPLETE YES; ECHINOCYTES 1+; HYPOCHROMIA PRESENT; POIKILOCYTOSIS PRESENT
[2016-07-26] MEDS ORDERED: CEFTRIAXONE SOD INJ 1 GM ADDVIAL IV STA (10:37)
[2016-07-26] MEDS ORDERED: AZITHROMYCIN 250 MG TAB PO STA (10:37)
[2016-07-26] MEDS ORDERED: NITROGLYCERIN 0.4 MG SL PER TAB CHARGE SL PRN (11:30)
[2016-07-26] MEDS ORDERED: SODIUM CHLORIDE 0.9% 500ML 500 ML IV SCH (11:30)
[2016-07-26] MEDS ORDERED: ONDANSETRON INJ 2 MG/ML 2 ML VIAL IV PRN (11:30)
[2016-07-26] MEDS ORDERED: PNEUMOCOCCAL ADMINISTRATION CHARGE ONE (12:00)
[2016-07-26] MEDS ORDERED: PNEUMOCOCCAL POLYSACCHARIDES 25 MCG/0.5 ML VIAL/SYR IM. ONE (12:00)
[2016-07-26] MEDS ORDERED: FRRS300 PO (12:01)
[2016-07-26] MEDS ORDERED: LISI-792 PO (12:01)
[2016-07-26] MEDS ORDERED: ASPITAB67 PO (12:01)
[2016-07-26] MEDS ORDERED: CHOL1000 PO (12:01)
[2016-07-26 12:08] LABS: INFLUENZA A PCR Neg for Influ A (NEG); INFLUENZA B PCR Neg for Influ B (NEG)
[2016-07-26] MEDS ORDERED: PIPERACILL/TAZOBAC CONSULT ACTIVE PRN (13:22)
[2016-07-26] MEDS ORDERED: PIPERACILL/TAZOBAC IV 3.375 GM in DEXTROSE 5% 100ML IV ONE (13:30)
--- NOTE | 2016-07-26 13:37 | History and Physical ---
History & Physical Date & Time of Service: July 26, 2016 at 12:07 Chief Complaint: Illness Primary Care Physician: Sd Person M.D. History of Present Illness Source: patient, spouse ( at bedside), clinic records, hospital records This is an 86 y/o female with PMH of hypertension, mitral valve prolapse, colonic mass, breast mass, and other problems listed below who presents to the ED for malaise. Patient was recently hospitalized at [facility] from June 30-2016 for acute GI bleed likely diverticular vs. colonic neoplasm, symptomatic anemia requiring 3 units pRBC, bacteremia with 1 bottle positive for weiss sensitive E. coli, treated with IV Zosyn and discharged on cefuroxime. Patient was seen by GI and declined workup for colonic mass at that time. Also declined w/up for breast mass at that time. Patient states she was feeling back to baseline up until yesterday when she developed malaise. Today she developed chills and noted her sleeping more. She reports mild non-productive cough with unclear duration. Appetite has been poor. Patient does not weigh herself but from Epic trend she lost approx 13 lb over past 7 months. Patient's sister whom she was close with 1 month ago. She is dealing with grief from the loss but states she is coping and was functioning well at home until this illness. Denies fever, DELGADO, rhinorrhea, sinus congestion, ear ache, sore throat, SOB, DOBSON, chest pain, abdominal pain, N/V, change in bowel movements, diarrhea, constipation, hematochezia, melena, dysuria, frequency, calf pain, edema. Denies known hx of CAD or lung disease. No prior stress test. No sick contacts. Past Medical/Surgical History Medical Problems: (1) Breast mass Status: Chronic (2) Colonic mass Status: Chronic (3) Dyslipidemia Status: Chronic (4) H/O goiter Permanent Comment: treated with iodine in past Status: Chronic (5) History of GI bleed Status: Chronic (6) Hypertension Status: Chronic (7) Mitral valve prolapse Status: Chronic (8) Osteoporosis Status: Chronic Surgical Problems: (1) S/P tonsillectomy Status: Chronic Family History FH: CAD (coronary artery disease) FATHER ([place] age 80) FH: cancer MOTHER (brain tumor and breast CA) Social History Smoking Status: Never Smoker Alcohol Use: 1 beer every other day Marital Status: Housing status: lives with significant other (ambulates [place]) Occupational Status: retired Allergies Coded Allergies: No Known Allergies (Unverified , 07/26/16) Home Medications Scheduled Cholecalciferol (Vitamin D3), 1 TAB PO DAILY Ferrous Sulfate (Ferrous Sulfate), 325 MG PO BID Lisinopril (Zestril), 20 MG PO DAILY Scheduled PRN Koihvps-Gfpwvkdttonhk-Hrwglmzw (Vanquish), 1 TAB PO UD PRN for Headache Review of Systems Constitutional: + chills, + fatigue, + weight loss, No fever, No weakness ENT: + problem reported (tongue growth discovered on exam- states it is present for years and does not bother her. does not want workup. ), No nasal symptoms, No sore throat, No trouble swallowing (no aspiration) Respiratory: + cough, No dyspnea on exertion, No shortness of breath, No sputum Cardiovascular: No chest pain, No edema Abdomen: No GI bleeding, No constipation, No diarrhea, No nausea, No pain, No vomiting Musculoskeletal: No calf pain, No joint pain Genitourinary - Female: No dysuria, No urinary frequency Neurologic: No problem reported (no DELGADO. no change in mental status. ) Psychiatric: + problem reported (dealing with grief from loss of sister in June 2016. states coping well. ) Hematologic / Lymphatic: No abnormal bleeding/bruising Physical Exam Vital Signs Date Time Temp Pulse Resp B/P Pulse Ox O2 Delivery O2 Flow Rate FiO2 07/26/16 11:38 109 07/26/16 10:50 37.3 116 20 103/42 93 Room Air 07/26/16 10:50 37.3 116 20 103/42 93 Room Air 07/26/16 10:10 122 22 95/52 93 Room Air 07/26/16 08:22 140 07/26/16 08:17 95 Room Air 07/26/16 08:17 39.0 General Appearance: WD/WN, no apparent distress, + pertinent finding (alert cooperative 86 year old female, non-toxic appearing, lying in bed, no distress, at bedside) Head: normocephalic, atraumatic Eyes: normal inspection, PERRL ENT: hearing grossly normal, pharynx normal, + pertinent finding (small 0.5 cm protuberant mass on left posterior superior aspect of tongue, soft, nontender) Neck: supple, trachea midline Respiratory/Chest: lungs clear, normal breath sounds, no respiratory distress, no accessory muscle use Cardiovascular: no murmur, normal peripheral pulses, + tachycardia (regular, rate 100) Abdomen/GI: normal bowel sounds, non tender, soft, + pertinent finding (no mass appreciated) Extremities/Musculoskelatal: normal inspection, no calf tenderness, no pedal edema Neurologic/Psych: alert, normal mood/affect, oriented x 3, + pertinent finding (no focal deficit on gross examination) Skin: normal color, warm/dry Diagnostics Laboratory Results Results Past 24 Hours Test 07/26/16 08:00 07/26/16 09:10 07/26/16 09:45 07/26/16 10:13 Range/Units White Blood Count 17.05 4.8-10.8 K/uL Red Blood Count 4.70 4.2-5.4 M/uL Hemoglobin 10.1 12.0-16.0 g/dL Hematocrit 34.2 37-47 % Mean Corpuscular Volume 72.8 80-100 fL Mean Corpuscular Hemoglobin 21.5 25-34 pg Mean Corpuscular Hemoglobin Concent 29.5 32-36 g/dl Platelet Count 396 130-400 K/uL Mean Platelet Volume 10.1 7.4-10.4 fL Neutrophils (%) (Auto) 85.0 % Lymphocytes (%) (Auto) 13.1 % Monocytes (%) (Auto) 0.6 % Eosinophils (%) (Auto) 0.4 % Basophils (%) (Auto) 0.1 % Neutrophils # (Auto) 14.49 1.4-6.5 K/uL Lymphocytes # (Auto) 2.24 1.2-3.4 K/uL Monocytes # (Auto) 0.11 0.11-0.59 K/uL Eosinophils # (Auto) 0.06 0-0.5 K/uL Basophils # (Auto) 0.02 0-0.2 K/uL RDW Standard Deviation 61.9 36.4-46.3 fL RDW Coefficient of Variation 23.1 11.5-14.5 % Immature Granulocyte % (Auto) 0.8 % Immature Granulocyte # (Auto) 0.13 0.00-0.02 K/uL Hypochromasia PRESENT Poikilocytosis PRESENT Anisocytosis PRESENT Echinocytes 1+ Sodium Level 137 136-145 mmol/L Potassium Level 3.8 3.5-5.1 mmol/L Chloride Level 102 98-107 mmol/L Carbon Dioxide Level 23 21-32 mmol/L Anion Gap 12.0 3-11 mmol/L Blood Urea Nitrogen 12 7-18 mg/dl Creatinine 1.20 0.60-1.20 mg/dl Est Creatinine Clear Calc Drug Dose 24.6 ml/min Estimated GFR () 47.7 Estimated GFR (Non- 41.2 BUN/Creatinine Ratio 9.9 10-20 Random Glucose 122 70-99 mg/dl Calcium Level 8.9 8.5-10.1 mg/dl Total Bilirubin 0.5 0.2-1 mg/dl Aspartate Amino Transf (AST/SGOT) 15 15-37 U/L Alanine Aminotransferase (ALT/SGPT) 11 12-78 U/L Alkaline Phosphatase 188 45-117 U/L Troponin I 0.146 0-0.045 ng/ml Total Protein 7.6 6.4-8.2 gm/dl Albumin 2.8 3.4-5.0 gm/dl Globulin 4.8 2.5-4.0 gm/dl Albumin/Globulin Ratio 0.6 0.9-2 Urine Color YELLOW Urine Appearance CLEAR CLEAR Urine pH 5.0 4.5-7.5 Urine Specific [place] 1.012 1.000-1.030 Urine Protein NEG NEG Urine Glucose (UA) NEG NEG Urine Ketones NEG NEG Urine Occult Blood NEG NEG Urine Nitrite NEG NEG Urine Bilirubin NEG NEG Urine Urobilinogen NEG NEG Urine Leukocyte Esterase NEG NEG Lactic Acid Level 1.5 0.4-2.0 mmol/L Microbiology Results 07/26/16 Blood Culture, Received Pending 07/26/16 Blood Culture, Received Pending Diagnostic Radiology CHEST 2 VIEWS ROUTINE CLINICAL HISTORY: cough fever COMPARISON STUDY: 06/29/2016 FINDINGS: Mild/moderate emphysematous change. Potential early parenchymal infiltrate left base. No evidence for cardiac enlargement. Upper lobe fibrous change with chronic apical pleural thickening. IMPRESSION: Emphysematous change. Potential small parenchymal infiltrate left base. EKG sinus tachycardia, rate 138, prolonged QT (qtc 539), new ST depression in V5-V6 Impression Assessment and Plan POSSIBLE SEPSIS due to PNEUMONIA, CAP VS. HCAP At risk for HCAP due to recent hospitalization 06/2016, had bacteremia with 1 bottle + for E. coli, weiss sensitive, treated with Zosyn and d/c on cefuroxime Meets criteria for sepsis with fever of 39.0, tachycardia (HR 140-> 100), leukocytosis (WBC 17K with left shift); no hypotension; lactic acid WNL CXR- emphysematous change, potential small parenchymal infiltrate left base No other source of infection identified; UA WNL Blood cultures pending; check sputum culture; influenza PCR pending Treated with ceftriaxone and azithromycin in ER Plan to continue empiric antibiotics with Zosyn and doxycycline Will give 500 mL NSS at 250/hour Monitor in telemetry PROLONGED QT Monitor in telemetry Avoid QT prolonging meds Recheck EKG in am MILDLY ELEVATED TROPONIN Trop mildly elevated to 0.146 No angina; EKG- new ST depressions in V5-V6 Trend serial troponin Monitor in telemetry HYPERTENSION BP low normal Hold lisinopril for now ANEMIA Recently hospitalized 06/2016 for symptomatic anemia due to GIB, presented with Hg 6.0 from baseline 11 with heme + stool; received 3 units pRBC, Hg improved to 10.4 on d/c GIB thought likely due to diverticular bleed vs. colonic neoplasm, seen by GI last admission, declined further workup for colon mass Hg is stable from recent d/c (10.1 today) Denies hematochezia/ melena Continue iron supplement Monitor CBC COLON MASS CT Dec 2015 showed colon lesion concerning for malignancy Reports low appetite and weight loss approx 13 lb past 7 months; no abdominal pain or change in stool Declined workup on recent admission; states her wishes remain the same- does not want workup BREAST MASS CT Dec 2015 showed 2.1 cm right breast lesion concerning for neoplasm Declined workup on recent admission CODE STATUS Full code per my discussion with the patient DVT PROPHYLAXIS SCD's due to recent GIB DISPOSITION Lives with Consulted certified social workers in health care for d/c planning Follows with Dr. Person for primary care Patient seen in collaboration with Dr. Mcclure. Please see his addendum. VTE Prophylaxis VTE Risk Assessment Done? Y/N: Yes Risk Level: High Given or contraindicated: SCD's Note ATTENDING ADDENDUM Record reviewed. Patient interviewed and examined. Care coordinated with Chastity Dao PA-C. Please refer to her documentation for patient's history. 86 YO female with history of hypertension. Hospitalized for E coli bacteremia / sepsis in 2015, apparent source was urinary tract although imaging at that time demonstrated colonic mass. Hospitalized again in June 2016 with anemia and bacteremia. 1/2 blood cultures grew E coli. Patient declined further evaluation for colonic mass. Presented to ED today with fever and chills. Experiencing mild nonproductive cough. No GI or symptoms. EXAM: General- no acute distress VS- as noted HEENT- anicteric Neck- supple; no adenopathy Lungs- clear to auscultation Heart- RRR Abdomen- + BS, soft, nontender, no palpable masses or organomegaly Extremities- no pretibial edema or calf tenderness Neuro- alert DATA: WBC 17,050. Hgb 10.1, MCV 73. Lactate 1.5. Troponin 0.146. Other lab studies as noted. CXR reviewed by undersigned and formally interpreted by Radiology: "potential small parenchymal infiltrate left base." EKG performed at 08:[address] at 140 / minute, ST depression V3-6.. ASSESSMENT AND PLAN: PROBABLE SEPSIS Presents with fever and chills. Mild cough. Possible LLL infiltrate on chest x-ray. 2 hospitalizations with E coli bacteremia since Dec 2015. Meets criteria for SIRS / sepsis per 2001 definition and current CMS guidelines. Uncertain whether patient indeed has pneumonia. May have recurrent sepsis related to previously noted colonic mass worrisome for diverticular disease or malignancy. Patient has repeatedly declined endoscopic evaluation. UA negative. Tachycardic. Mild hypotension, but sys BP's > 90. Serum lactate 1.5. Blood cultures obtained in ED. Initially received azithromycin and ceftriaxone for suspected community acquired pneumonia. Must also be concerned about possible GI source. Will change coverage for possible atypical pulmonary pathogens to doxycycline due to prolonged QTc. Will start IV piperacillin / tazobactam for broader gram neg / anaerobic coverage. Check procalcitonin. ELEVATED TROPONIN Serum troponin 0.146. No chest pain. EKG shows ST with lateral ST depression. Suspect that elevated troponin is nonspecific elevation due to infection. Follow. HYPERTENSION BP's relatively low. Hold lisinopril. Follow and titrate Rx. VTE PROPHYLAXIS No anticoagulants in light of recent GI bleed. SCD's. Ambulate. Please refer to REBECCA Dao's documentation for discussion of other issues. Sesar Mcclure MD .
[2016-07-26] MEDS: ACETAMINOPHEN 325 MG TAB PO PRN ×2 (16:37→20:15)
[2016-07-26] MEDS: FERROUS SULFATE 325 MG TAB PO SCH (16:45)
[2016-07-26] MEDS: PIPERACILL/TAZOBAC IV 3.375 GM in DEXTROSE 5% 100ML IV SCH (17:38)
[2016-07-26] MEDS: DOXYCYCLINE HYCLATE 100 MG CAP PO SCH (20:14)
[2016-07-26 20:39] LABS: CKMB/CK RATIO 3.6 (0-3.0)
[2016-07-26] MEDS: LACTATED RINGER'S 1000ML 1,000 ML IV SCH (22:09)
[2016-07-27] VITALS (7 sets, daily range): BP systolic 101–128; BP diastolic 57–77; PULSE 81–94; TEMP 36.7–37.2; O2SAT 93–98
[2016-07-27] MEDS: PIPERACILL/TAZOBAC IV 3.375 GM in DEXTROSE 5% 100ML IV SCH ×3 (02:09→17:58)
[2016-07-27] MEDS ORDERED: NURSING DECISION MEDICATION ORDER SCH (02:30)
[2016-07-27] MEDS: LACTATED RINGER'S 1000ML 1,000 ML IV SCH ×3 (04:56→23:42)
[2016-07-27 06:24] LABS: HEMATOCRIT 27.4 % (37-47); MEAN CELL VOLUME 72.3 fL (80-100); MEAN CORPUSCULAR HEMOGLOBIN 21.9 pg (25-34); MEAN CORPUSCULAR HGB CONC 30.3 g/dl (32-36); MEAN PLATELET VOLUME 9.4 fL (7.4-10.4); PLATELET COUNT 254 K/uL (130-400); RED BLOOD COUNT 3.79 M/uL (4.2-5.4); WHITE BLOOD COUNT 11.98 K/uL (4.8-10.8)
[2016-07-27 06:48] LABS: BUN/CREATININE RATIO 11.7 (10-20); CALCIUM 7.9 mg/dl (8.5-10.1); CREATININE 1.1 mg/dl (0.60-1.20); POTASSIUM 3.8 mmol/L (3.5-5.1)
--- NOTE | 2016-07-27 07:20 | Clinical Documentation Query ---
WICHO Kinney : CLINICAL DOCUMENTATION QUERIES QUERY 1 OF 3 Patient is a 86 year old female admitted for treatment of sepsis secondary to pneumonia. Blood cultures (2 of 2) positive for gram negative bacilli. She is being treated with IV Zosyn and monitored on telemetry with serial labs. As appropriate, consider documentation as suggested below to specify the sepsis. In your clinical opinion is this patient being managed for: ( ) Gram-negative sepsis secondary to pneumonia ( ) Other explanation of clinical findings (Please Explain) ( ) Unable to determine (Please Define) ( ) Need to Discuss ( ) Not Agree The medical record reflects the following clinical findings, treatment, and risk factors. Clinical Indicators: As above Treatment: She is being treated with IV Zosyn and monitored on telemetry with serial labs Risk Factors: Age, recent hospitalization, recent antibiotics QUERY 2 OF 3 Serum troponin on admission 0.146 ng/ml, further increased to 1.08 ng/ml. EKG on admission with "ST and T wave abnormality, concerning for ischemia. Septal infarct and T wave abnormality were new since 06/29/16 EKG, and nonspecific T wave abnormality, worse in lateral leads. She is being monitored on telemetry with serial troponins. In your clinical opinion is this patient being managed for: ( ) Type II NSTEMI ( ) Other explanation of clinical findings (Please Explain) ( ) Unable to determine (Please Define) ( ) Need to Discuss ( ) Not Agree The medical record reflects the following clinical findings, treatment, and risk factors. Clinical Indicators: Treatment: She is being monitored on telemetry with serial troponins. Risk Factors: Age, tachycardia, sepsis, anemia QUERY 3 OF 3 H&H this a.m. (07/27) demonstrates values of 8.3 g/dl and 27.4%. MCV 72, MCH 22. 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 She was transfused 3 units of PRBC's on that admission. She is maintained on iron supplementation and monitored with serial CBC's. In your clinical opinion is this patient being managed for: ( ) Iron deficiency/microcytic hypochromic anemia secondary to (chronic) blood loss ( ) Other explanation of clinical findings (Please Explain) ( ) Unable to determine (Please Define) ( ) Need to Discuss ( ) Not Agree The medical record reflects the following clinical findings, treatment, and risk factors. Clinical Indicators: As above Treatment:She is maintained on iron supplementation and monitored with serial CBC's. Risk Factors: Age, likely colonic neoplasm, possible diverticulosis Please clarify and document your clinical opinion in the progress notes and discharge summary. Terms such as "probable", "suspected", "likely", "questionable", "possible", or "still to be ruled out" are acceptable. IF IN AGREEMENT, YOU MUST DOCUMENT ABOVE DIAGNOSTIC STATEMENT IN DAILY PROGRESS NOTES AND DISCHARGE SUMMARY. This document is not part of the patient's record. Thank You, Leeroy Giron, RN [phone]
[2016-07-27] MEDS: FERROUS SULFATE 325 MG TAB PO SCH ×2 (08:52→16:50)
[2016-07-27] MEDS: CHOLECALCIFEROL 1000 INTER.UNIT TAB PO SCH (08:52)
[2016-07-27] MEDS: DOXYCYCLINE HYCLATE 100 MG CAP PO SCH ×2 (08:52→20:21)
[2016-07-27] MEDS ORDERED: CEFTRIAXONE SOD INJ 1 GM in DEXTROSE 5% ADD-VANTAGE 50ML 50 ML IV SCH (10:00)
[2016-07-27] MEDS: ACETAMINOPHEN 325 MG TAB PO PRN ×2 (10:17→20:22)
[2016-07-27] MEDS ORDERED: AZITHROMYCIN 250 MG TAB PO SCH (11:00)
--- NOTE | 2016-07-27 19:15 | Progress Note ---
Internal Med Progress Note Date of Service: July 27, 2016. Provider Documentation: SUBJECTIVE: resting comfortably feeling better wants to go home but agreed to stay today afebrile no sob' no nausea OBJECTIVE: Vital Signs-as noted below Exam: General-alert and awake and oriented x 3 ENT-hard of hearing Neck-no neck masses Lungs-cta b/l no wheezing or crackles Heart-s1 and s2 heard regular rate and rhythm no murmurs Abdomen-soft bowel sounds present non tender no distension Extremities- no edema present no erythema Neuro-alert and awake oriented x 3 moves extremities Lab data as noted below. ASSESSMENT & PLAN: SEPSIS due to PNEUMONIA, CAP VS. HCAP bacteremia with gm negative bacilli- 3rd episode Possible HCAP on iv Zosyn and doxycycline hemodynamics stable consulted ID for recurrent bacteremia will monitor PROLONGED QT Monitor in telemetry Avoiding QT prolonging meds Recheck EKG in am MILDLY ELEVATED TROPONIN Trop mildly elevated to 0.146 No angina; EKG- new ST depressions in V5-V6 Trend serial troponin Monitor in telemetry HYPERTENSION BP low normal Hold lisinopril for now ANEMIA As per H and P:'Recently hospitalized 06/2016 for symptomatic anemia due to GIB, presented with Hg 6.0 from baseline 11 with heme + stool; received 3 units pRBC , Hg improved to 10.4 on d/c GIB thought likely due to diverticular bleed vs. colonic neoplasm, seen by GI last admission, declined further workup for colon mass' Hg is 8.3 today denies any bleeding COLON MASS "CT Dec 2015 showed colon lesion concerning for malignancy Reports low appetite and weight loss approx 13 lb past 7 months; no abdominal pain or change in stool Declined workup on recent admission; states her wishes remain the same- does not want workup" BREAST MASS CT Dec 2015 showed 2.1 cm right breast lesion concerning for neoplasm Declined workup on recent admission will readdress CODE STATUS Full code per h and p DVT PROPHYLAXIS SCD's due to recent GIB DISPOSITION Lives with Consulted social and human services assistant for d/c planning Follows with Dr. Person for primary care Vital Signs: Date Time Temp Pulse Resp B/P Pulse Ox O2 Delivery O2 Flow Rate FiO2 07/27/16 16:00 36.8 84 16 113/74 97 Room Air 07/27/16 16:00 Room Air 07/27/16 11:54 98 Room Air 07/27/16 08:14 37.0 94 16 122/74 98 07/27/16 08:00 Room Air 07/27/16 04:00 95 Room Air 07/27/16 03:08 36.7 81 17 101/57 95 Room Air 07/27/16 00:01 93 Room Air 07/26/16 23:48 36.8 88 21 94/56 96 Room Air 07/26/16 20:00 93 Room Air 07/26/16 19:39 37.3 99 16 98/56 93 Room Air Lab Results: Results Past 24 Hours Test 07/26/16 20:02 07/27/16 05:50 07/27/16 06:49 07/27/16 11:20 Range/Units Total Creatine Kinase 44 26-192 U/L Creatine Kinase MB 1.6 0.5-3.6 ng/ml Creatine Kinase MB Ratio 3.6 0-3.0 Troponin I 1.080 0.310 0-0.045 ng/ml Procalcitonin 29.87 28.56 0-0.5 ng/ml White Blood Count 11.98 4.8-10.8 K/uL Red Blood Count 3.79 4.2-5.4 M/uL Hemoglobin 8.3 12.0-16.0 g/dL Hematocrit 27.4 37-47 % Mean Corpuscular Volume 72.3 80-100 fL Mean Corpuscular Hemoglobin 21.9 25-34 pg Mean Corpuscular Hemoglobin Concent 30.3 32-36 g/dl RDW Standard Deviation 61.5 36.4-46.3 fL RDW Coefficient of Variation 23.2 11.5-14.5 % Platelet Count 254 130-400 K/uL Mean Platelet Volume 9.4 7.4-10.4 fL Sodium Level 142 136-145 mmol/L Potassium Level 3.8 3.5-5.1 mmol/L Chloride Level 108 98-107 mmol/L Carbon Dioxide Level 29 21-32 mmol/L Anion Gap 5.0 3-11 mmol/L Blood Urea Nitrogen 13 7-18 mg/dl Creatinine 1.10 0.60-1.20 mg/dl Est Creatinine Clear Calc Drug Dose 26.9 ml/min Estimated GFR () 53.0 Estimated GFR (Non- 45.7 BUN/Creatinine Ratio 11.7 10-20 Random Glucose 85 70-99 mg/dl Calcium Level 7.9 8.5-10.1 mg/dl Bedside Glucose 87 70-90 mg/dl
[2016-07-28] VITALS (8 sets, daily range): BP systolic 122–161; BP diastolic 67–83; PULSE 64–87; TEMP 36.5–37.2; O2SAT 93–96
[2016-07-28] MEDS: PIPERACILL/TAZOBAC IV 3.375 GM in DEXTROSE 5% 100ML IV SCH ×3 (02:00→17:22)
[2016-07-28] MEDS: ACETAMINOPHEN 325 MG TAB PO PRN ×2 (03:14→16:15)
[2016-07-28] MEDS: DOXYCYCLINE HYCLATE 100 MG CAP PO SCH ×2 (07:20→19:44)
[2016-07-28] MEDS: FERROUS SULFATE 325 MG TAB PO SCH ×2 (07:20→16:16)
[2016-07-28] MEDS: CHOLECALCIFEROL 1000 INTER.UNIT TAB PO SCH (07:21)
[2016-07-28 09:08] LABS: BASO % 0.2 %; BASO ABS # 0.03 K/uL (0-0.2); EOS % 0.6 %; HEMATOCRIT 31.1 % (37-47); IG% 0.5 %; LYMPH % 12.9 %; LYMPH ABS # 1.69 K/uL (1.2-3.4); MEAN CELL VOLUME 71.3 fL (80-100); MEAN CORPUSCULAR HEMOGLOBIN 21.1 pg (25-34); MEAN CORPUSCULAR HGB CONC 29.6 g/dl (32-36); MEAN PLATELET VOLUME 9.1 fL (7.4-10.4); MONO % 7.7 %; NEUT % 78.1 %; PLATELET COUNT 295 K/uL (130-400); RED BLOOD COUNT 4.36 M/uL (4.2-5.4); WHITE BLOOD COUNT 13.06 K/uL (4.8-10.8)
[2016-07-28 09:25] LABS: ACANTHOCYTES 1+; ANISOCYTOSIS PRESENT; COMPLETE YES; OVALOCYTES 1+
[2016-07-28 09:51] LABS: CALCIUM 8.3 mg/dl (8.5-10.1)
[2016-07-28 10:03] LABS: MAGNESIUM 2.1 mg/dl (1.8-2.4)
--- NOTE | 2016-07-28 14:32 | Medical Consult ---
Consultation Date of Consultation: July 28, 2016. Attending Physician: Dawood Cohen MD Reason for Consultation: Persistent bacteremia. History of Present Illness 86-year-old female with history of colon carcinoma, refusing any surgical intervention, with separate episodes in the past of E coli sepsis, who was now readmitted to the hospital with 1 day history of recurrent fever and chills consistent with prior episodes of E coli sepsis. Blood cultures again positive for gram-negative bacilli. Patient feeling better since admission, currently afebrile and hemodynamically stable. Denies significant abdominal pain. Patient states she wants to go home to care for family member who is very ill. Past Medical/Surgical History Medical Problems: (1) Elevated troponin Status: Acute (2) Elevated troponin Status: Acute (3) Fever Status: Acute (4) Pneumonia Status: Acute (5) Sepsis due to urinary tract infection Status: Acute (6) Symptomatic anemia Status: Acute Medical Problems: (1) Anemia (2) Breast mass (3) Colonic mass (4) Dyslipidemia (5) GI (gastrointestinal bleed) (6) H/O goiter (7) History of GI bleed (8) Hypertension (9) Mitral valve prolapse (10) Osteoporosis (11) Pneumonia (12) Sepsis (13) SIRS (systemic inflammatory response syndrome) (14) Weakness Surgical Problems: (1) S/P tonsillectomy Family History FH: CAD (coronary artery disease) FATHER ([place] age 80) FH: cancer MOTHER (brain tumor and breast CA) Social History Smoking Status: Never Smoker Alcohol Use: 1 beer every other day Marital Status: Housing Status: lives with family Occupation Status: retired Allergies Coded Allergies: No Known Allergies (Unverified , 07/26/16) Current Inpatient Medications Current Inpatient Medications Medications (Trade) Dose Ordered Sig/Dano Route Start Time Stop Time Status Last Admin Dose Admin Acetaminophen (Tylenol Tab) 650 mg Q4H PRN PO 07/26/16 11:30 08/25/16 11:29 07/28/16 03:14 325 MG Nitroglycerin (Nitrostat Tab) 0.4 mg UD PRN SL 07/26/16 11:30 08/25/16 11:29 Cholecalciferol (Vitamin D Tab) 1,000 inter.unit DAILY PO 07/27/16 09:00 08/26/16 08:59 07/28/16 07:21 1,000 INTER.UNIT Ferrous Sulfate (Feosol Tab) 325 mg BIDM PO 07/26/16 16:45 08/25/16 16:44 07/28/16 07:20 325 MG Doxycycline Hyclate (Vibramycin Cap) 100 mg BID PO 07/26/16 21:00 08/02/16 20:59 07/28/16 07:20 100 MG Piperacillin Sod/ Tazobactam Sod 1 ea 1 ea UD PRN N/A 07/26/16 13:22 08/25/16 13:21 Piperacillin Sod/ Tazobactam Sod 3.375 gm/Dextrose 115 ml @ 28.75 mls/ hr Q8H IV 07/26/16 18:00 08/02/16 17:59 07/28/16 10:00 28.75 MLS/HR Lactated Ringer's (Lr 1000ml) 1,000 ml @ 50 mls/hr Q20H IV 07/26/16 22:00 10/07/16 21:59 07/27/16 23:42 50 MLS/HR Review of Systems Constitutional: + chills, + fatigue, + fever Eyes: No problem reported ENT: No problem reported Respiratory: No problem reported Cardiovascular: No problem reported Abdomen: No problem reported Musculoskeletal: No problem reported Genitourinary - Female: No problem reported Neurologic: No problem reported Psychiatric: No problem reported Endocrine: No problem reported Hematologic / Lymphatic: No problem reported Integumentary: No problem reported Allergic / Immunologic: No problem reported Physical Exam Date Time Temp Pulse Resp B/P Pulse Ox O2 Delivery O2 Flow Rate FiO2 07/28/16 12:15 36.5 64 18 136/79 96 07/28/16 11:22 Room Air 07/28/16 07:45 36.7 85 18 139/73 94 Room Air 07/28/16 07:30 Room Air 07/28/16 04:00 Room Air 07/28/16 03:33 36.9 69 17 122/67 95 Room Air 07/28/16 00:10 37.0 77 16 138/71 94 Room Air 07/28/16 00:01 Room Air 07/27/16 20:00 Room Air 07/27/16 19:58 37.2 94 18 128/77 95 Room Air 07/27/16 16:00 36.8 84 16 113/74 97 Room Air 07/27/16 16:00 Room Air General Appearance: WD/WN, no apparent distress Head: normocephalic, atraumatic Eyes: normal inspection, EOMI, sclerae normal ENT: normal ENT inspection, pharynx normal Neck: supple, no adenopathy, thyroid normal, trachea midline Respiratory/Chest: chest non-tender, lungs clear, normal breath sounds, no respiratory distress Cardiovascular: regular rate, rhythm, no gallop, no murmur Abdomen/GI: normal bowel sounds, non tender, soft, no organomegaly Back: normal inspection, no CVA tenderness Extremities/Musculoskelatal: no calf tenderness, non-tender Neurologic/Psych: alert, normal mood/affect, oriented x 3 Skin: normal color, warm/dry, no rash Lymphatic: no adenopathy Laboratory Results RUN DATE: 07/28/16 [facility] LAB PAGE 1 RUN TIME: 1219 Specimen Inquiry PATIENT: CASSIDY SALAZAR LOC: [facility] U # : [id number] AGE/SX: 86/F ROOM: [facility] REG : 07/26/[address]: Dawood Cohen MD : [id number] BED: 1 DIS : STATUS: ADM IN TLOC: SPEC #: [id number] ROBERT: 07/26/16 STATUS: RES REQ #: [id number] RECD: 07/26/[address] [facility] [address]: Frankie Ortega M.D. SOURCE: BLOOD ENTR: 07/26/[address] [facility] [address]: Sd Person M.D. [facility]: ORDERED: BLOOD CULTURE Procedure Result Verified Site BLD CULT Preliminary 07/28/16-1219 Organism 1 GRAM NEGATIVE BACILLI SENS SENSITIVITY TO FOLLOW Phoned Positive Blood Culture Gram Stain Report to MARIO BREWSTER on 07/27/16 At 0212 By PHILOMENA. Results [facility] to [facility]. Last 24 Hours Test 07/28/16 08:57 White Blood Count 13.06 K/uL Red Blood Count 4.36 M/uL Hemoglobin 9.2 g/dL Hematocrit 31.1 % Mean Corpuscular Volume 71.3 fL Mean Corpuscular Hemoglobin 21.1 pg Mean Corpuscular Hemoglobin Concent 29.6 g/dl Platelet Count 295 K/uL Mean Platelet Volume 9.1 fL Neutrophils (%) (Auto) 78.1 % Lymphocytes (%) (Auto) 12.9 % Monocytes (%) (Auto) 7.7 % Eosinophils (%) (Auto) 0.6 % Basophils (%) (Auto) 0.2 % Neutrophils # (Auto) 10.19 K/uL Lymphocytes # (Auto) 1.69 K/uL Monocytes # (Auto) 1.01 K/uL Eosinophils # (Auto) 0.08 K/uL Basophils # (Auto) 0.03 K/uL RDW Standard Deviation 60.5 fL RDW Coefficient of Variation 23.1 % Immature Granulocyte % (Auto) 0.5 % Immature Granulocyte # (Auto) 0.06 K/uL Anisocytosis PRESENT Ovalocytes 1+ Acanthocytes 1+ Sodium Level 139 mmol/L Potassium Level 4.0 mmol/L Chloride Level 104 mmol/L Carbon Dioxide Level 27 mmol/L Anion Gap 8.0 mmol/L Blood Urea Nitrogen 12 mg/dl Creatinine 1.00 mg/dl Est Creatinine Clear Calc Drug Dose 32.1 ml/min Estimated GFR () 59.5 Estimated GFR (Non- 51.3 BUN/Creatinine Ratio 12.0 Random Glucose 104 mg/dl Calcium Level 8.3 mg/dl Magnesium Level 2.1 mg/dl CHEST 2 VIEWS ROUTINE CLINICAL HISTORY: cough fever COMPARISON STUDY: 06/29/2016 FINDINGS: Mild/moderate emphysematous change. Potential early parenchymal infiltrate left base. No evidence for cardiac enlargement. Upper lobe fibrous change with chronic apical pleural thickening. IMPRESSION: Emphysematous change. Potential small parenchymal infiltrate left base. Electronically signed by: Lexx Magallanes M.D. 07/26/2016 10:07 AM Dictated Date/Time: 07/26/2016 10:07 AM The status of this report is Signed. Draft = Not yet reviewed or approved by Radiologist. Signed = Reviewed and approved by Radiologist. <AttendingPhy></AttendingPhy> <FamilyPhy>Sd Person M.D.</FamilyPhy> < PrimaryPhy>Sd Person M.D.</PrimaryPhy> <UnitNumber>[id number]</UnitNumber > <VisitNumber>[id number]</VisitNumber> <PatientName>CASSIDY SALAZAR</ PatientName> <DateOfBirth>1930</DateOfBirth> <Location>[facility]</Location> < ServiceDate>07/26/16</ServiceDate> <MNE>ESINDI</MNE> <OrderingPhy>Frankie Ortega M.D.</OrderingPhy> <OrderingPhyMNE>f rep ord dr lopez</OrderingPhyMNE> < DictatingPhyMNE>f rep dict dr lopez</DictatingPhyMNE> <CCListMNE>f rep ct jennifere</ CCListMNE> <AdmittingPhyMNE>f pt admit dr lopez</AdmittingPhyMNE> <AttendingPhyMNE >f pt attend dr lopez</AttendingPhyMNE> <ConsultingPhyMNE>f pt consult dr lopez</ConsultingPhyMNE> <FamilyPhyMNE>f pt fam dr lopez</FamilyPhyMNE> <OtherPhyMNE>f pt other dr lopez</OtherPhyMNE> < PrimaryPhyMNE>f pt prim care dr lopez</PrimaryPhyMNE> <ReferringPhyMNE>f pt referring dr lopez</ReferringPhyMNE> Assessment & Plan 86 yo female with know colon cancer with 2 prior episodes of E.coli sepsis, now again with gram negative bacteremia. Likely again E.coli and likely related to colonic neoplasm. Previous isolates quinolone-sensitive so may be able to treat with oral ciprofloxacin. As no interventions planned for her cancer, may want to consider chronic suppressive therapy given this is her third recurrence. Await ID/sensitivities of gram negative in blood. Will discuss and follow.
--- NOTE | 2016-07-28 18:33 | Progress Note ---
Internal Med Progress Note Date of Service: July 28, 2016. Provider Documentation: SUBJECTIVE: resting comfortably says doing fine and wants to be discharged' when said she needs to sign out AMA agreed to stay for one more day. OBJECTIVE: Vital Signs-as noted below Exam: General-alert and awake and oriented x 3 ENT-hard of hearing Neck-no neck masses Lungs-cta b/l no wheezing or crackles Heart-s1 and s2 heard regular rate and rhythm no murmurs Abdomen-soft bowel sounds present non tender no distension Extremities- no edema present no erythema Neuro-alert and awake oriented x 3 moves extremities Lab data as noted below. ASSESSMENT & PLAN: SEPSIS due to PNEUMONIA, CAP VS. HCAP bacteremia with gm negative bacilli- 3rd episode Possible HCAP on iv Zosyn and doxycycline hemodynamics stable consulted ID for recurrent bacteremia ID plans on chronic suppression tx await final cx will monitor PROLONGED QT Monitor in telemetry Avoiding QT prolonging meds Recheck EKG in am MILDLY ELEVATED TROPONIN NStemi from demand ischemia? Trop mildly elevated to 0.146 No angina; EKG- new ST depressions in V5-V6 f/u echo Monitor in telemetry HYPERTENSION BP low normal Hold lisinopril for now ANEMIA As per H and P:'Recently hospitalized 06/2016 for symptomatic anemia due to GIB, presented with Hg 6.0 from baseline 11 with heme + stool; received 3 units pRBC , Hg improved to 10.4 on d/c GIB thought likely due to diverticular bleed vs. colonic neoplasm, seen by GI last admission, declined further workup for colon mass' Hg is 9.2 today denies any bleeding COLON MASS "CT Dec 2015 showed colon lesion concerning for malignancy Reports low appetite and weight loss approx 13 lb past 7 months; no abdominal pain or change in stool Declined workup on recent admission; states her wishes remain the same- does not want workup" BREAST MASS CT Dec 2015 showed 2.1 cm right breast lesion concerning for neoplasm Declined workup on recent admission will readdress CODE STATUS Full code per h and p DVT PROPHYLAXIS SCD's due to recent GIB DISPOSITION Lives with Consulted school social worker for d/c planning Follows with Dr. Person for primary care to be determined Vital Signs: Date Time Temp Pulse Resp B/P Pulse Ox O2 Delivery O2 Flow Rate FiO2 07/28/16 15:23 37.2 87 18 156/82 95 Room Air 161/81 07/28/16 15:17 Room Air 07/28/16 12:15 36.5 64 18 136/79 96 07/28/16 11:22 Room Air 07/28/16 07:45 36.7 85 18 139/73 94 Room Air 07/28/16 07:30 Room Air 07/28/16 04:00 Room Air 07/28/16 03:33 36.9 69 17 122/67 95 Room Air 07/28/16 00:10 37.0 77 16 138/71 94 Room Air 07/28/16 00:01 Room Air 07/27/16 20:00 Room Air 07/27/16 19:58 37.2 94 18 128/77 95 Room Air Lab Results: Results Past 24 Hours Test 07/28/16 08:57 Range/Units White Blood Count 13.06 4.8-10.8 K/uL Red Blood Count 4.36 4.2-5.4 M/uL Hemoglobin 9.2 12.0-16.0 g/dL Hematocrit 31.1 37-47 % Mean Corpuscular Volume 71.3 80-100 fL Mean Corpuscular Hemoglobin 21.1 25-34 pg Mean Corpuscular Hemoglobin Concent 29.6 32-36 g/dl Platelet Count 295 130-400 K/uL Mean Platelet Volume 9.1 7.4-10.4 fL Neutrophils (%) (Auto) 78.1 % Lymphocytes (%) (Auto) 12.9 % Monocytes (%) (Auto) 7.7 % Eosinophils (%) (Auto) 0.6 % Basophils (%) (Auto) 0.2 % Neutrophils # (Auto) 10.19 1.4-6.5 K/uL Lymphocytes # (Auto) 1.69 1.2-3.4 K/uL Monocytes # (Auto) 1.01 0.11-0.59 K/uL Eosinophils # (Auto) 0.08 0-0.5 K/uL Basophils # (Auto) 0.03 0-0.2 K/uL RDW Standard Deviation 60.5 36.4-46.3 fL RDW Coefficient of Variation 23.1 11.5-14.5 % Immature Granulocyte % (Auto) 0.5 % Immature Granulocyte # (Auto) 0.06 0.00-0.02 K/uL Anisocytosis PRESENT Ovalocytes 1+ Acanthocytes 1+ Sodium Level 139 136-145 mmol/L Potassium Level 4.0 3.5-5.1 mmol/L Chloride Level 104 98-107 mmol/L Carbon Dioxide Level 27 21-32 mmol/L Anion Gap 8.0 3-11 mmol/L Blood Urea Nitrogen 12 7-18 mg/dl Creatinine 1.00 0.60-1.20 mg/dl Est Creatinine Clear Calc Drug Dose 32.1 ml/min Estimated GFR () 59.5 Estimated GFR (Non- 51.3 BUN/Creatinine Ratio 12.0 10-20 Random Glucose 104 70-99 mg/dl Calcium Level 8.3 8.5-10.1 mg/dl Magnesium Level 2.1 1.8-2.4 mg/dl
[2016-07-28] MEDS: LACTATED RINGER'S 1000ML 1,000 ML IV SCH (19:41)
[2016-07-29] VITALS (8 sets, daily range): BP systolic 133–151; BP diastolic 73–80; PULSE 77–101; TEMP 36.6–37.3; O2SAT 94–97
[2016-07-29] MEDS: PIPERACILL/TAZOBAC IV 3.375 GM in DEXTROSE 5% 100ML IV SCH ×2 (01:40→10:47)
[2016-07-29] MEDS: DOXYCYCLINE HYCLATE 100 MG CAP PO SCH (07:25)
[2016-07-29] MEDS: FERROUS SULFATE 325 MG TAB PO SCH (07:25)
[2016-07-29] MEDS: CHOLECALCIFEROL 1000 INTER.UNIT TAB PO SCH (07:26)
--- NOTE | 2016-07-29 09:50 | ECHOCARDIOGRAM REPORT ---
*NOTICE TO RECEIVING LIBERTARIAN AGENCY This information is strictly Confidential and protected under [place] law. [place] law prohibits you from making any further disclosure of this information unless further disclosure is expressly permitted by the written consent of the person to whom it pertains or is authorized by law. A general authorization for the release of medical or other information is not sufficient for this purpose. Hospital accepts no responsibility if the information is made available to any other person, INCLUDING THE PATIENT. Interpretation Summary * Name: CASSIDY SALAZAR Study Date: 07/28/2016 03:39 PM BP: 161/81 mmHg * Patient Location: C.2T\S\S231\S\1 HR: 87 * : 1930 (M/d/yyyy) Gender: Female Height: 60 in * Age: 86 yrs Ethnicity: CA Weight: 121 lb * Ordering Physician: Dawood Cohen * Referring Physician: Self, Referred * Performed By: Alanis Pinon RDCS * * Reason For Study: EKG changes, mild elevation of troponin * BSA: 1.5 m2 * -- Conclusions -- * The left ventricle is normal in size. * There is mild concentric left ventricular hypertrophy. * The left ventricular wall motion is normal. * Left ventricular systolic function is normal. * Ejection Fraction = 55-60%. * Grade I diastolic dysfunction, (abnormal relaxation pattern). * The left atrium is mildly dilated. * There is mild mitral annular calcification. * The mitral valve leaflets are mildly thickened. * There is mild to moderate mitral regurgitation. * There is trace tricuspid regurgitation. * Doppler findings do not suggest pulmonary hypertension. Procedure Details * A complete two-dimensional transthoracic echocardiogram was performed (2D, M-mode, Doppler and color flow Doppler). Left Ventricle * The left ventricle is normal in size. * There is mild concentric left ventricular hypertrophy. * Ejection Fraction = 55-60%. * Left ventricular systolic function is normal. * The left ventricular wall motion is normal. Right Ventricle * The right ventricle is normal in size and function. Atria * The left atrium is mildly dilated. * Right atrial size is normal. * No ASD detected; PFO is not assessed. Mitral Valve * There is mild mitral annular calcification. * The mitral valve leaflets are mildly thickened. * There is no mitral valve stenosis. * There is mild to moderate mitral regurgitation. Tricuspid Valve * The tricuspid valve anatomy is normal. * There is no tricuspid stenosis. * There is trace tricuspid regurgitation. * Doppler findings do not suggest pulmonary hypertension. Aortic Valve * The aortic valve is trileaflet. * Aortic valve sclerosis mild, without significant aortic valvular stenosis. * No aortic regurgitation is present. Pulmonic Valve * The pulmonic valve is not well visualized. Great Vessels * The aortic root is normal size. Pericardium/Pleural * There is no pericardial effusion. Great Vessels * Normal inferior vena cava diameter and respiratory variation suggests normal central venous pressure. Left Ventricular Diastolic Function * Grade I diastolic dysfunction, (abnormal relaxation pattern). MMode 2D Measurements and Calculations IVSd 0.87 cm LVIDd 3.5 cm LVIDs 2.4 cm LVPWd 0.88 cm IVS/LVPW 0.99 FS 30.9 % EDV(Teich) 51.7 ml ESV(Teich) 20.9 ml EF(Teich) 59.5 % EDV(cubed) 43.8 ml ESV(cubed) 14.5 ml EF(cubed) 67.0 % LV mass(C)d 86.5 grams LV mass(C)dI 57.4 grams/m\S\2 SV(Teich) 30.8 ml SI(Teich) 20.4 ml/m\S\2 SV(cubed) 29.3 ml SI(cubed) 19.4 ml/m\S\2 Ao root diam 3.4 cm Ao root area 9.1 cm\S\2 ACS 1.8 cm LA dimension 2.7 cm asc Aorta Diam 3.1 cm LA/Ao 0.80 LVAd ap4 23.4 cm\S\2 LVLd ap4 6.9 cm EDV(MOD-sp4) 63.8 ml EDV(sp4-el) 67.4 ml LVAs ap4 13.4 cm\S\2 LVLs ap4 5.9 cm ESV(MOD-sp4) 26.5 ml ESV(sp4-el) 25.6 ml EF(MOD-sp4) 58.5 % EF(sp4-el) 61.9 % LVAd ap2 21.4 cm\S\2 LVLd ap2 6.9 cm EDV(MOD-sp2) 54.7 ml EDV(sp2-el) 56.4 ml LVAs ap2 13.0 cm\S\2 LVLs ap2 6.1 cm ESV(MOD-sp2) 23.7 ml ESV(sp2-el) 23.7 ml EF(MOD-sp2) 56.6 % EF(sp2-el) 58.0 % LVLd %diff 0.37 % EDV(MOD-bp) 59.4 ml LVLs %diff 2.4 % ESV(MOD-bp) 25.4 ml EF(MOD-bp) 57.3 % SV(MOD-sp4) 37.4 ml SI(MOD-sp4) 24.8 ml/m\S\2 SV(MOD-sp2) 31.0 ml SI(MOD-sp2) 20.5 ml/m\S\2 SV(MOD-bp) 34.0 ml SI(MOD-bp) 22.5 ml/m\S\2 SV(sp4-el) 41.7 ml SI(sp4-el) 27.7 ml/m\S\2 SV(sp2-el) 32.7 ml SI(sp2-el) 21.7 ml/m\S\2 Doppler Measurements and Calculations MV E max nelson 58.7 cm/sec MV A max nelson 82.0 cm/sec MV E/A 0.72 MV dec time 0.32 sec Ao V2 max 97.3 cm/sec Ao max PG 3.8 mmHg Ao max PG (full) 1.3 mmHg LV V1 max PG 2.5 mmHg LV V1 max 79.1 cm/sec PA V2 max 97.7 cm/sec PA max PG 3.8 mmHg PA acc slope 629.1 cm/sec\S\2 PA acc time 0.11 sec PI max nelson 167.0 cm/sec PI max PG 11.1 mmHg PI dec slope 110.1 cm/sec\S\2 PI P1/2t 444.0 msec TR max nelson 185.0 cm/sec PA pr(Accel) 31.5 mmHg
[2016-07-29] MEDS ORDERED: CEFD300C2 PO (14:03)
[2016-07-29] MEDS ORDERED: DXY100 PO (14:03)
--- NOTE | 2016-07-29 14:05 | Discharge Instructions ---
Discharge Instructions Date of Service July 29, 2016. Admission Reason for Admission: Pneumonia, Sirs Discharge Discharge Diagnosis / Problem: BACTEREMIA, PNEUMONIA Discharge Goals Goal(s): Decrease discomfort, Improve function Activity Recommendations Activity Limitations: resume your previous activity . Instructions / Follow-Up Instructions / Follow-Up FOLLOWUP WITH FAMILY DOCTOR IN ONE WEEK ( PATIENT WILL BE CALLED WITH APPOINTMENT) ANTIBIOTIC DOXYCYCLINE 100MG PO TWICE DAILY FOR 5 MORE DAYS AND STOP ANTIBIOTIC OMNICEF 300MG PO TWICE DAILY FOR 14 DAYS AND THEN OMNICEF 300MG PO ONCE DAILY INDEFINITELY( FOR CHRONIC SUPPRESSION PATIENT HAVING RECURRENT INFECTIONS). PROBIOTIC LACTINEX 1 TABLET PO TWICE DAILY PATIENT WILL BE ON CHRONIC ANTIBIOTIC. Current Hospital Diet Patient's current hospital diet: AHA Diet (Heart Healthy) Discharge Diet Recommended Diet: Regular Diet Pending Studies Studies pending at discharge: no Medical Emergencies . Who to Call and When: Medical Emergencies: If at any time you feel your situation is an emergency, please call 911 immediately. . Non-Emergent Contact Non-Emergency issues call your: Primary Care Provider . . "Provider Documentation" section prepared by Dawood Cohen. . VTE Core Measure Inpt VTE Proph given/why not?: SCD's
[2016-07-29] MEDS ORDERED: LCTX PO (14:07)
--- NOTE | 2016-07-29 19:10 | Progress Note ---
Internal Med Progress Note Date of Service: July 29, 2016. Provider Documentation: SUBJECTIVE: resting comfortably feeling much better wants to go home denies any complaints OBJECTIVE: Vital Signs-as noted below Exam: General-alert and awake and oriented x 3 ENT-hard of hearing Neck-no neck masses Lungs-cta b/l no wheezing or crackles Heart-s1 and s2 heard regular rate and rhythm no murmurs Abdomen-soft bowel sounds present non tender no distension Extremities- no edema present no erythema Neuro-alert and awake oriented x 3 moves extremities Lab data as noted below. ASSESSMENT & PLAN: SEPSIS due to PNEUMONIA, CAP VS. HCAP bacteremia with gm negative bacilli- 3rd episode Possible HCAP on iv Zosyn and doxycycline hemodynamics stable consulted ID for recurrent bacteremia ID plans on chronic suppression tx blood cx weiss sensitive e.coli d/w ID and was recommended Omnicef bid for 2 weeks and then once daily indefinitely( could not give cipro secondary to prolonged qt interval.) discharged PROLONGED QT Monitor in telemetry Avoiding QT prolonging meds MILDLY ELEVATED TROPONIN NStemi from demand ischemia? Trop mildly elevated to 0.146 No angina; EKG- new ST depressions in V5-V6 echo unremarkable asymptomatic HYPERTENSION BP low normal Hold lisinopril for now d/c on home meds ANEMIA As per H and P:'Recently hospitalized 06/2016 for symptomatic anemia due to GIB, presented with Hg 6.0 from baseline 11 with heme + stool; received 3 units pRBC , Hg improved to 10.4 on d/c GIB thought likely due to diverticular bleed vs. colonic neoplasm, seen by GI last admission, declined further workup for colon mass' Hg is 9.2 today denies any bleeding COLON MASS "CT Dec 2015 showed colon lesion concerning for malignancy Reports low appetite and weight loss approx 13 lb past 7 months; no abdominal pain or change in stool Declined workup on recent admission; states her wishes remain the same- does not want workup" BREAST MASS CT Dec 2015 showed 2.1 cm right breast lesion concerning for neoplasm Declined workup on recent admission discharged home Vital Signs: Date Time Temp Pulse Resp B/P Pulse Ox O2 Delivery O2 Flow Rate FiO2 07/29/16 14:35 37.0 77 18 96 Room Air 07/29/16 12:00 36.6 101 18 133/73 94 Room Air 07/29/16 11:20 97 Room Air 07/29/16 08:43 96 Room Air 07/29/16 07:18 37.3 86 20 151/80 94 Room Air 07/29/16 05:06 37.0 77 18 137/75 95 Room Air 07/29/16 04:17 95 Room Air 07/29/16 00:16 95 Room Air 07/28/16 23:57 36.8 80 16 138/83 93 Room Air 07/28/16 20:00 95 Room Air 07/28/16 19:24 37.1 76 18 138/77 96 Room Air
--- NOTE | 2016-07-29 19:19 | Discharge Summary ---
Discharge Summary Date of Service July 29, 2016. Discharge Summary Admission Date: July 26, 2016 at 11:26 Discharge Date: July 29, 2016 Discharge Disposition: Home Principal Diagnosis: SEPSIS BACTEREMIA PNEUMONIA Secondary Diagnoses/Problems: 1) Breast mass Status: Chronic (2) Colonic mass Status: Chronic (3) Dyslipidemia Status: Chronic (4) H/O goiter Permanent Comment: treated with iodine in past Status: Chronic (5) History of GI bleed Status: Chronic (6) Hypertension Status: Chronic (7) Mitral valve prolapse Status: Chronic (8) Osteoporosis Status: Chronic Procedures: CXR: Emphysematous change. Potential small parenchymal infiltrate left base. ECHO: The left ventricle is normal in size. * There is mild concentric left ventricular hypertrophy. * The left ventricular wall motion is normal. * Left ventricular systolic function is normal. * Ejection Fraction = 55-60%. * Grade I diastolic dysfunction, (abnormal relaxation pattern). * The left atrium is mildly dilated. * There is mild mitral annular calcification. * The mitral valve leaflets are mildly thickened. * There is mild to moderate mitral regurgitation. * There is trace tricuspid regurgitation. * Doppler findings do not suggest pulmonary hypertension. 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 Lactobacillus Acidophilus (Lactinex) Tab 1 TAB PO BID for 30 Days, TAB 2 Refills Doxycycline Hyclate (Doxycycline Hyclate) 100 Mg Cap 100 MG PO BID for 5 Days, #10 CAP Continued Medications: Rcalpla-Fguluohvwfade-Ilxrmhti (Vanquish) 1 Tab Tab 1 TAB PO UD PRN for Headache Cholecalciferol (Vitamin D3) 1,000 Unit Tab 1 TAB PO DAILY for 30 Days, #30 TAB 5 Refills Ferrous Sulfate (Ferrous Sulfate) 325 Mg Tab 325 MG PO BID Lisinopril (Zestril) 20 Mg Tab 20 MG PO DAILY, TAB Admission Information HPI (per Admitting provider): This is an 86 y/o female with PMH of hypertension, mitral valve prolapse, colonic mass, breast mass, and other problems listed below who presents to the ED for malaise. Patient was recently hospitalized at [facility] from June 30-2016 for acute GI bleed likely diverticular vs. colonic neoplasm, symptomatic anemia requiring 3 units pRBC, bacteremia with 1 bottle positive for weiss sensitive E. coli, treated with IV Zosyn and discharged on cefuroxime. Patient was seen by GI and declined workup for colonic mass at that time. Also declined w/up for breast mass at that time. Patient states she was feeling back to baseline up until yesterday when she developed malaise. Today she developed chills and noted her sleeping more. She reports mild non-productive cough with unclear duration. Appetite has been poor. Patient does not weigh herself but from Epic trend she lost approx 13 lb over past 7 months. Patient's sister whom she was close with 1 month ago. She is dealing with grief from the loss but states she is coping and was functioning well at home until this illness. Denies fever, DELGADO, rhinorrhea, sinus congestion, ear ache, sore throat, SOB, DOBSON, chest pain, abdominal pain, N/V, change in bowel movements, diarrhea, constipation, hematochezia, melena, dysuria, frequency, calf pain, edema. Denies known hx of CAD or lung disease. No prior stress test. No sick contacts. Physical Exam (per Admitting): General Appearance: WD/WN, no apparent distress, + pertinent finding (alert cooperative 86 year old female, non-toxic appearing, lying in bed, no distress, at bedside) Head: normocephalic, atraumatic Eyes: normal inspection, PERRL ENT: hearing grossly normal, pharynx normal, + pertinent finding (small 0.5 cm protuberant mass on left posterior superior aspect of tongue, soft, nontender ) Neck: supple, trachea midline Respiratory/Chest: lungs clear, normal breath sounds, no respiratory distress, no accessory muscle use Cardiovascular: no murmur, normal peripheral pulses, + tachycardia (regular , rate 100) Abdomen/GI: normal bowel sounds, non tender, soft, + pertinent finding (no mass appreciated) Extremities/Musculoskelatal: normal inspection, no calf tenderness, no pedal edema Neurologic/Psych: alert, normal mood/affect, oriented x 3, + pertinent finding (no focal deficit on gross examination) Skin: normal color, warm/dry Hospital Course SEPSIS due to PNEUMONIA, CAP VS. HCAP bacteremia with gm negative bacilli- 3rd episode Possible HCAP on iv Zosyn and doxycycline hemodynamics stable consulted ID for recurrent bacteremia ID plans on chronic suppression tx blood cx weiss sensitive e.coli d/w ID and was recommended Omnicef bid for 2 weeks and then once daily indefinitely( could not give cipro secondary to prolonged qt interval.) discharged PROLONGED QT Monitor in telemetry Avoiding QT prolonging meds MILDLY ELEVATED TROPONIN NStemi from demand ischemia? Trop mildly elevated to 0.146 No angina; EKG- new ST depressions in V5-V6 echo unremarkable asymptomatic HYPERTENSION BP low normal Hold lisinopril for now d/c on home meds ANEMIA As per H and P:'Recently hospitalized 06/2016 for symptomatic anemia due to GIB, presented with Hg 6.0 from baseline 11 with heme + stool; received 3 units pRBC , Hg improved to 10.4 on d/c GIB thought likely due to diverticular bleed vs. colonic neoplasm, seen by GI last admission, declined further workup for colon mass' Hg is 9.2 today denies any bleeding COLON MASS "CT Dec 2015 showed colon lesion concerning for malignancy Reports low appetite and weight loss approx 13 lb past 7 months; no abdominal pain or change in stool Declined workup on recent admission; states her wishes remain the same- does not want workup" BREAST MASS CT Dec 2015 showed 2.1 cm right breast lesion concerning for neoplasm Declined workup on recent admission discharged home Total time spent on discharge = 35MINUTES This includes examination of the patient, discharge planning, medication reconciliation, and communication with other providers. Discharge Instructions Discharge Instructions Date of Service July 29, 2016. Admission Reason for Admission: Pneumonia, Sirs Discharge Discharge Diagnosis / Problem: BACTEREMIA, PNEUMONIA Discharge Goals Goal(s): Decrease discomfort, Improve function Activity Recommendations Activity Limitations: resume your previous activity . Instructions / Follow-Up Instructions / Follow-Up FOLLOWUP WITH FAMILY DOCTOR IN ONE WEEK ( PATIENT WILL BE CALLED WITH APPOINTMENT) ANTIBIOTIC DOXYCYCLINE 100MG PO TWICE DAILY FOR 5 MORE DAYS AND STOP ANTIBIOTIC OMNICEF 300MG PO TWICE DAILY FOR 14 DAYS AND THEN OMNICEF 300MG PO ONCE DAILY INDEFINITELY( FOR CHRONIC SUPPRESSION PATIENT HAVING RECURRENT INFECTIONS). PROBIOTIC LACTINEX 1 TABLET PO TWICE DAILY PATIENT WILL BE ON CHRONIC ANTIBIOTIC. Current Hospital Diet Patient's current hospital diet: AHA Diet (Heart Healthy) Discharge Diet Recommended Diet: Regular Diet Pending Studies Studies pending at discharge: no Medical Emergencies . Who to Call and When: Medical Emergencies: If at any time you feel your situation is an emergency, please call 911 immediately. . Non-Emergent Contact Non-Emergency issues call your: Primary Care Provider . . "Provider Documentation" section prepared by Dawood Cohen. . VTE Core Measure Inpt VTE Proph given/why not?: SCD's
[2016-08-15] MEDS ORDERED: OMEG10007 PO (07:48)
[2017-01-02] MEDS ORDERED: METO-551 PO (16:00)
[2017-01-02] MEDS ORDERED: FRRS300 PO (16:00)
[2017-01-02] MEDS ORDERED: LSN20 PO (16:00)
[2017-01-02] MEDS ORDERED: CEFD300C2 PO (16:00)
[2017-01-09] MEDS ORDERED: RXNS10 SL (11:30)
[2017-01-09] MEDS ORDERED: ATV5 SL (11:30)
[2017-01-09] MEDS ORDERED: LVS125 SL (11:30)
== END 2016-07-29 16:04 | disposition home or self-care (01) | DRG 871 ==
LOC: ENRESERVDT → ENRESERVTM → EDBD 08:10 → C.EDB 08:13 → C.2T 11:26 → EDBEDREQ 11:34
PROVIDERS: ADMIT Hospitalist; ATTEND Internal Medicine
DX: A41.51 Sepsis due to Escherichia coli [E. coli] (principal); J18.1 Lobar pneumonia, unspecified organism; E78.5 Hyperlipidemia, unspecified; I10 Essential (primary) hypertension; M81.0 Age-related osteoporosis without current pathological fracture; I34.1 Nonrheumatic mitral (valve) prolapse; D64.9 Anemia, unspecified; N63 Unspecified lump in breast; Z87.891 Personal history of nicotine dependence

== ENCOUNTER 2016-11-07 08:00 | Emergency (ER) | payer OTHER ==
[~2016-11-07] VITALS: Ht 167.6 cm; Wt 44.7 kg
[~2016-11-07 08:00] MED LIST changes: +CHOL1000 PO; +FRRS300 PO; +LISI-792 PO; +OMEG10007 PO
[2016-11-07 08:10] VITALS: TEMP 37; O2SAT 94; Ht 167.6 cm; Wt 44.7 kg
[2016-11-07] MEDS ORDERED: SODIUM CHLORIDE 0.9% 1000ML 1,000 ML IV STA (08:53)
--- NOTE | 2016-11-07 08:53 | EMERGENCY ROOM VISIT NOTE ---
History Report prepared by Blanka: Della Wong Under the Supervision of: Brian BuckO. First contact with patient: 08:06 Chief Complaint: WEAKNESS Stated Complaint: ILLNESS History of Present Illness The patient is an 86 year old female who presents to the Emergency Room with complaints of a persistent illness that began several weeks ago. The patient's states that over the past year the patient has intermittently been feeling weak. He states that that the patient wakes up in the morning weak, a decrease in appetite, and increased fatigue. The patient's states that her symptoms all began when her sister one year ago. The patient reports that she was supposed to come to the hospital today for a blood transfusion, but notes that she ended up in the emergency department instead. She denies any melena or hematochezia. The patient's notes that ALS was called today because the patient was too weak to walk. Source of History: patient, spouse/significant other () Onset: several weeks ago Position: other (global) Quality: other (illness) Timing: other (persistent) Associated Symptoms: + fatigue, + weakness, No melena, No hematochezia Note: Associated Symptoms: decrease in appetite Review of Systems See HPI for pertinent positives & negatives. A total of 10 systems reviewed and were otherwise negative. Past Medical & Surgical Medical Problems: (1) Anemia (2) Breast mass (3) Colonic mass (4) Dyslipidemia (5) GI (gastrointestinal bleed) (6) H/O goiter (7) History of GI bleed (8) Hypertension (9) Mitral valve prolapse (10) Osteoporosis (11) Pneumonia (12) Sepsis (13) SIRS (systemic inflammatory response syndrome) (14) Weakness Surgical Problems: (1) S/P tonsillectomy Family History FH: CAD (coronary artery disease) FATHER (ID age 80) FH: cancer MOTHER (brain tumor and breast CA) Social History Smoking Status: Never Smoker Marital Status: Housing Status: lives with family Occupation Status: retired Current/Historical Medications Scheduled Cholecalciferol (Vitamin D3), 1 TAB PO DAILY Scheduled PRN Asemhfi-Jzolwczjnjfvr-Cjzowsks ([place]), 1 TAB PO UD PRN for Headache Allergies Coded Allergies: No Known Allergies (Unverified , 11/07/16) Physical Exam Vital Signs Date Time Temp Pulse Resp B/P (MAP) Pulse Ox O2 Delivery O2 Flow Rate FiO2 11/07/16 09:46 90 20 175/79 96 Room Air 11/07/16 08:10 94 Room Air 11/07/16 08:10 37.0 89 16 134/78 94 Room Air 11/07/16 08:06 91 Physical Exam CONSTITUTIONAL/VITAL SIGNS: Reviewed / noted above. GENERAL: Non-toxic in appearance. INTEGUMENTARY: Warm, dry, and [place]. HEAD: Normocephalic. EYES: without scleral icterus or trauma. ENT/OROPHARYNX: clear and moist. LYMPHADENOPATHY/NECK: Is supple without lymphadenopathy or meningismus. RESPIRATORY: Lungs clear and equal. CARDIOVASCULAR: Regular rate and rhythm. GI/ABDOMEN: Soft and nontender. No organomegaly or pulsatile mass. No rebound or guarding. Normal bowel sounds. EXTREMITIES: Warm and well perfused. BACK: No CVA tenderness. NEUROLOGICAL: Intact without focal deficits. PSYCHIATRIC: normal affect. MUSCULOSKELETAL: Normally developed with good muscle tone. Medical Decision & Procedures ER Provider Diagnostic Interpretation: X ray results and stated below per my interpretation and radiology interpretation. SINGLE VIEW CHEST CLINICAL HISTORY: Generalized weakness. Change in mental status. FINDINGS: An AP, portable, upright chest radiograph is obtained compared to study dated 07/26/2016. The examination is degraded by portable technique and patient rotation. The cardiac silhouette is top normal for projection. There is enlargement the central pulmonary arteries suggesting pulmonary artery hypertension. There is atherosclerotic calcification of the thoracic aorta. Emphysema is suspected and there is diffuse interstitial thickening. No focal airspace consolidation or pleural effusion is seen. Apical scarring and calcification is again noted. No pneumothorax is identified. The skeletal structures are osteopenic. The bony thorax is grossly intact. IMPRESSION: Chronic parenchymal changes as above. No acute cardiopulmonary abnormality is seen. Electronically signed by: Aurelio Briggs M.D. 11/07/2016 9:38 AM Dictated Date/Time: 11/07/2016 9:36 AM Laboratory Results 11/07/16 07:35 Red Blood Count 4.70, Mean Corpuscular Volume 71.1, Mean Corpuscular Hemoglobin 21.1, Mean Corpuscular Hemoglobin Concent 29.6, Mean Platelet Volume 10.1, Neutrophils (%) (Auto) 72.3, Lymphocytes (%) (Auto) 16.7, Monocytes (%) (Auto) 10.3, Eosinophils (%) (Auto) 0.1, Basophils (%) (Auto) 0.1, Neutrophils # (Auto ) 6.88, Lymphocytes # (Auto) 1.59, Monocytes # (Auto) 0.98, Eosinophils # (Auto ) 0.01, Basophils # (Auto) 0.01 11/07/16 07:35 Test 11/07/16 07:35 White Blood Count 9.52 K/uL (4.8-10.8) Red Blood Count 4.70 M/uL (4.2-5.4) Hemoglobin 9.9 g/dL (12.0-16.0) Hematocrit 33.4 % (37-47) Mean Corpuscular Volume 71.1 fL (80-100) Mean Corpuscular Hemoglobin 21.1 pg (25-34) Mean Corpuscular Hemoglobin Concent 29.6 g/dl (32-36) Platelet Count 401 K/uL (130-400) Mean Platelet Volume 10.1 fL (7.4-10.4) Neutrophils (%) (Auto) 72.3 % Lymphocytes (%) (Auto) 16.7 % Monocytes (%) (Auto) 10.3 % Eosinophils (%) (Auto) 0.1 % Basophils (%) (Auto) 0.1 % Neutrophils # (Auto) 6.88 K/uL (1.4-6.5) Lymphocytes # (Auto) 1.59 K/uL (1.2-3.4) Monocytes # (Auto) 0.98 K/uL (0.11-0.59) Eosinophils # (Auto) 0.01 K/uL (0-0.5) Basophils # (Auto) 0.01 K/uL (0-0.2) RDW Standard Deviation 46.0 fL (36.4-46.3) RDW Coefficient of Variation 17.8 % (11.5-14.5) Immature Granulocyte % (Auto) 0.5 % Immature Granulocyte # (Auto) 0.05 K/uL (0.00-0.02) Red Blood Cell Morphology Unremarkable Prothrombin Time 10.7 SECONDS (9.0-12.0) Prothromb Time International Ratio 1.0 (0.9-1.1) Activated Partial Thromboplast Time 24.4 SECONDS (21.0-31.0) Partial Thromboplastin Ratio 0.9 Anion Gap 10.0 mmol/L (3-11) Est Creatinine Clear Calc Drug Dose 38.2 ml/min Estimated GFR () 82.9 Estimated GFR (Non- 71.5 BUN/Creatinine Ratio 22.9 (10-20) Calcium Level 9.2 mg/dl (8.5-10.1) Magnesium Level 2.6 mg/dl (1.8-2.4) Total Bilirubin 0.6 mg/dl (0.2-1) Direct Bilirubin 0.3 mg/dl (0-0.2) Aspartate Amino Transf (AST/SGOT) 19 U/L (15-37) Alanine Aminotransferase (ALT/SGPT) 9 U/L (12-78) Alkaline Phosphatase 174 U/L (45-117) Total Creatine Kinase 21 U/L (26-192) Creatine Kinase MB < 0.5 ng/ml (0.5-3.6) Creatine Kinase MB Ratio (0-3.0) Troponin I < 0.015 ng/ml (0-0.045) Total Protein 7.4 gm/dl (6.4-8.2) Albumin 2.6 gm/dl (3.4-5.0) Lipase 72 U/L (73-393) Thyroid Stimulating Hormone (TSH) 0.800 uIu/ml (0.300-4.500) Laboratory results as stated above per my review. Medications Administered Medications (Trade) Dose Ordered Sig/Dano Route Start Time Stop Time Status Last Admin Dose Admin Sodium Chloride 1,000 ml @ 999 mls/hr Q1H1M STAT IV 11/07/16 08:53 11/07/16 09:53 DC 11/07/16 08:53 999 MLS/HR ECG Indication: weakness Rate (beats per minute): 92 Rhythm: sinus rhythm Findings: PAC, no acute ischemic change, no ectopy ED Course 0819: Previous medical records were reviewed. The patient was evaluated in room B2. A complete history and physical examination was performed. 0853: Ordered Sodium Chloride 1000 ml @ 999 mls/hr IV. 1020: I reevaluated the patient and she is resting comfortably. I discussed the exam findings with her and I discussed the treatment plan. She verbalized complete understanding and agreement. She is ready to go home shortly. Medical Decision Differentials include: Acute coronary syndrome, myocardial infarction, CVA, TIA , anemia, infection, pneumonia, UTI, pyelonephritis, poor nutrition, dehydration , electrolyte disturbance, and hypoglycemia. This is an 86-year-old female who presents to the ED with a chief complaint of feeling weak and having decreased oral intake as well as feeling tired. The patient states that she was referred here for recheck of anemia and possible blood transfusion. The patient's exam was unremarkable. Her vital signs are stable. Her blood work reveals a hemoglobin of 9.9. PRP was normal, complete metabolic panel was unremarkable, TSH is normal. Troponin is negative. Chest x -ray did not show acute disease had an EKG shows a sinus rhythm at a rate of 92. The patient was told results of her blood work. Her vital signs remained stable. She is felt to be stable for discharge and outpatient follow-up. Medication Reconcilliation Current Medication List: was personally reviewed by me Blood Pressure Screening Patient's blood pressure: Normal blood pressure Blood pressure disposition: Did not require urgent referral Impression Primary Impression: Weakness Additional Impression: Fatigue Scribe Attestation The scribe's documentation has been prepared under my direction and personally reviewed by me in its entirety. I confirm that the note above accurately reflects all work, treatment, procedures, and medical decision making performed by me. Departure Information Dispostion Home / Self-Care Referrals Sd Person M.D. (PCP) Forms HOME CARE DOCUMENTATION FORM, IMPORTANT VISIT INFORMATION Patient Instructions My [facility] Additional Instructions Your hemoglobin today is 9.9. Other blood work did not show any significant abnormalities. Chest x-ray did not show pneumonia. Follow-up with your doctor for recheck later this week or next week. Return as needed. Problem Qualifiers
[2016-11-07 09:14] LABS: HEMATOCRIT 33.4 % (37-47); MEAN CELL VOLUME 71.1 fL (80-100); MEAN CORPUSCULAR HEMOGLOBIN 21.1 pg (25-34); MEAN CORPUSCULAR HGB CONC 29.6 g/dl (32-36); MEAN PLATELET VOLUME 10.1 fL (7.4-10.4); PLATELET COUNT 401 K/uL (130-400); WHITE BLOOD COUNT 9.52 K/uL (4.8-10.8)
[2016-11-07 09:23] LABS: PARTIAL THROMBOPLASTIN RATIO 0.9; PROTHROMBIN TIME (PATIENT) 10.7 SECONDS (9.0-12.0)
[2016-11-07 09:27] LABS: ALT/SGPT 9 U/L (12-78); BLOOD UREA NITROGEN 17 mg/dl (7-18); BUN/CREATININE RATIO 22.9 (10-20); CALCIUM 9.2 mg/dl (8.5-10.1); CARBON DIOXIDE 27 mmol/L (21-32); CHLORIDE 100 mmol/L (98-107); CREATININE 0.76 mg/dl (0.60-1.20); MAGNESIUM 2.6 mg/dl (1.8-2.4); POTASSIUM 4.1 mmol/L (3.5-5.1); SODIUM 137 mmol/L (136-145)
[2016-11-07 09:35] LABS: ALKALINE PHOSPHATASE 174 U/L (45-117); AST/SGOT 19 U/L (15-37)
--- NOTE | 2016-11-07 09:39 | DIAGNOSTIC IMAGING REPORT ---
SINGLE VIEW CHEST CLINICAL HISTORY: Generalized weakness. Change in mental status. FINDINGS: An AP, portable, upright chest radiograph is obtained compared to study dated 07/26/2016. The examination is degraded by portable technique and patient rotation. The cardiac silhouette is top normal for projection. There is enlargement the central pulmonary arteries suggesting pulmonary artery hypertension. There is atherosclerotic calcification of the thoracic aorta. Emphysema is suspected and there is diffuse interstitial thickening. No focal airspace consolidation or pleural effusion is seen. Apical scarring and calcification is again noted. No pneumothorax is identified. The skeletal structures are osteopenic. The bony thorax is grossly intact. IMPRESSION: Chronic parenchymal changes as above. No acute cardiopulmonary abnormality is seen. Electronically signed by: Aurelio Briggs M.D. 11/07/2016 9:38 AM Dictated Date/Time: 11/07/2016 9:36 AM
[2016-11-07 09:45] LABS: GLUCOSE 80 mg/dl (70-99)
[2016-11-07 09:55] LABS: BASO % 0.1 %; BASO ABS # 0.01 K/uL (0-0.2); COMPLETE YES; EOS % 0.1 %; IG% 0.5 %; LYMPH % 16.7 %; LYMPH ABS # 1.59 K/uL (1.2-3.4); MONO % 10.3 %; NEUT % 72.3 %
[2016-11-07 10:37] VITALS: BP 147/77; PULSE 93; O2SAT 94
[2016-11-07 10:58] LABS: MANUAL MICROSCOPIC REQUIRED? NO; REVIEW REQ? NO; URINE APPEARANCE CLEAR (CLEAR); URINE BILIRUBIN NEG (NEG); URINE COLOR YELLOW; URINE EPITHELIAL CELL AUTO 20-30 /lpf (0-5); URINE NITRITE NEG (NEG); URINE SPECIFIC GRAVITY 1.014 (1.000-1.030); UROBILINOGEN NEG (NEG); ZZUR CULT IF INDIC CLEAN CATCH NO
== END 2016-11-07 10:41 | disposition home or self-care (01) ==
LOC: C.EDB 08:00 → EDBD 08:00 → C.EDB 10:41
DX: R53.1 Weakness (principal); R53.83 Other fatigue; I10 Essential (primary) hypertension; E78.5 Hyperlipidemia, unspecified; I34.1 Nonrheumatic mitral (valve) prolapse; M81.0 Age-related osteoporosis without current pathological fracture; E04.9 Nontoxic goiter, unspecified; D64.9 Anemia, unspecified; Z87.19 Personal history of other diseases of the digestive system; Z98.890 Other specified postprocedural states; Z88.8 Allergy status to other drugs, medicaments and biological substances; Z82.49 Family history of ischemic heart disease and other diseases of the circulatory system; Z80.9 Family history of malignant neoplasm, unspecified